=== PATIENT | female | born 1955 | race Caucasian/White ===

== ENCOUNTER 2021-11-05 11:04 | Outpatient (CLI) | payer MEDICARE, BC, SELFPAY | END 2021-11-05 11:05 | disposition home or self-care (01) | LOC: AMB 11-07 21:51 | PROVIDERS: Visit Provider Emergency Medicine | DX: R50.9 Fever, unspecified (principal) | CPT/HCPCS: A0425; A0427 ==

== ENCOUNTER 2021-11-05 11:52 | Emergency (ER) | payer MEDICARE, BC, SELFPAY ==
[2021-11-05 11:32] VITALS: BP 132/60; PULSE 113; RESP 18; TEMP 39; O2SAT 93; BMI 33.1
--- NOTE | 2021-11-05 11:32 | ED.GENADULT ---
HPI - General Adult General Time Seen by Provider: 11:31 <Maurizio Osorio MD - Last Filed: 11/05/21 15:02> Date Seen: 11/05/21 <Maurizio Osorio MD - Last Filed: 11/05/21 15:02> Chief complaint: Fever <Maurizio Osorio MD - Last Filed: 11/05/21 15:02> Stated complaint: fever <Maurizio Osorio MD - Last Filed: 11/05/21 15:02> Source: patient <Maurizio Osorio MD - Last Filed: 11/05/21 15:02> Mode of arrival: EMS <Maurizio Osorio MD - Last Filed: 11/05/21 15:02> History of Present Illness HPI narrative: 66-year-old female who presents today with fever and cough. She has had the fever since yesterday, cough is been going on for about a week. She has had chills and some body aches for the past week but has been afebrile prior to last night. No nausea or vomiting but decreased appetite. She has had headache. She has some sinus congestion but no runny nose, no sore throat. No abdominal pain, no diarrhea, no urinary symptoms. She has been taking Tylenol for her fever. Cough is nonproductive, does not seem to be worse lying down versus sitting. She denies shortness of breath and chest pain, did have some back pain yesterday. <Maurizio Osorio MD - Last Filed: 11/05/21 15:02> Related Data Home medications: Home Medications Medication Instructions Recorded Confirmed alendronate 70 mg tablet mg PO 11/05/21 bupropion HCl 150 mg 24 hr tablet, mg PO 11/05/21 extended release bupropion HCl 300 mg 24 hr tablet, mg PO 11/05/21 extended release omeprazole 20 mg capsule,delayed mg 11/05/21 release pramipexole 1 mg tablet mg 11/05/21 sertraline 100 mg tablet mg 11/05/21 topiramate 100 mg tablet mg 11/05/21 topiramate 50 mg tablet mg 11/05/21 Previous Rx's Medication Instructions Recorded levofloxacin 750 mg tablet 750 mg PO Q24H #7 tab 11/05/21 <Maurizio Osorio MD - Last Filed: 11/05/21 15:02> Allergies/adverse reactions: Allergies Allergy/AdvReac Type Severity Reaction Status Date / Time cefaclor [From [facility]] Allergy Hives Verified 11/05/21 11:40 <Maurizio Osorio MD - Last Filed: 11/05/21 15:02> Review of Systems Status of ROS: Reports: 10 or more systems reviewed and unremarkable except as noted in History and below <Maurizio Osorio MD - Last Filed: 11/05/21 15:02> [facility] Social History: Social History Smoking Status: Never smoker Do you use any of these nicotine containing products: None Second hand tobacco smoke exposure: No How often do you have a drink containing alcohol: monthly or less How often do you have six or more drinks on one occasion: Never AUDIT-C Alcohol total score: 1 Non-prescribed substance use: denies use <Maurizio Osorio MD - Last Filed: 11/05/21 15:02> Exam Const: Vital Signs, click to edit/add: Vital Signs - 24 hr 11/05/21 11:32 Temperature 102.2 F H Pulse Rate [Pulse Oximeter] 113 H Respiratory Rate 18 Blood Pressure [Le ft Upper Arm] 132/60 Pulse Oximetry 93 <Maurizio Osorio MD - Last Filed: 11/05/21 15:02> Documenting provider has reviewed patient's vital signs: yes <Maurizio Osorio MD - Last Filed: 11/05/21 15:02> Common normals: no apparent distress, oriented x3, no limitations, healthy appearing and alert <Maurizio Osorio MD - Last Filed: 11/05/21 15:02> HENMT: Common normals: normocephalic, head/scalp atraumatic, external ears normal, external nose normal and moist oral mucous membranes <Maurizio Osorio MD - Last Filed: 11/05/21 15:02> Head and scalp: normocephalic and atraumatic <Maurizio Osorio MD - Last Filed: 11/05/21 15:02> Nose: external nose normal <Maurizio Osorio MD - Last Filed: 11/05/21 15:02> External ear: external ears normal <Maurizio Osorio MD - Last Filed: 11/05/21 15:02> Eye: Common normals: PERRL, EOMs intact bilaterally and conjunctivae normal <Maurizio Osorio MD - Last Filed: 11/05/21 15:02> Conjunctiva: conjunctiva(e) normal <Maurizio Osorio MD - Last Filed: 11/05/21 15:02> Pupil: PERRL <Maurizio Osorio MD - Last Filed: 11/05/21 15:02> Neck & C-Spine: Common normals: full ROM, no lymphadenopathy and supple <MD Jen Light Last Filed: 11/05/21 15:02> General: trachea midline <Maurizio Osorio MD - Last Filed: 11/05/21 15:02> Lymph: Lymphatic: no lymphadenopathy noted <Maurizio Osorio MD - Last Filed: 11/05/21 15:02> Chest: Common normals: inspection of chest normal and palpation of chest normal <Maurizio Osorio MD - Last Filed: 11/05/21 15:02> Resp: Common normals: normal respiratory effort, no retractions and clear to auscultation bilaterally <Maurizio Osorio MD - Last Filed: 11/05/21 15:02> Auscultation: clear to auscultation bilaterally <Maurizio Osorio MD - Last Filed: 11/05/21 15:02> Cardio: Common normals: regular rhythm and no murmurs <MD Jen Light Last Filed: 11/05/21 15:02> Rate: tachycardic <MD Jen Light Last Filed: 11/05/21 15:02> Rhythm: regular rhythm <MD Jen Light Last Filed: 11/05/21 15:02> GI: Common normals: Normal to inspection, nondistended, normoactive bowel sounds present, soft to palpation and non-tender <MD Jen Light Last Filed: 11/05/21 15:02> Palpation: soft <Maurizio Osorio MD - Last Filed: 11/05/21 15:02> : Common normals: no CVA tenderness <Maurizio Osorio MD - Last Filed: 11/05/21 15:02> Bladder/kidney exam: no CVA tenderness <Maurizio Osorio MD - Last Filed: 11/05/21 15:02> Back & Pelvis: Common normals: no CVA tenderness and no thoracic nor lumbar tenderness <Maurizio Osorio MD - Last Filed: 11/05/21 15:02> Extremity: Common normals: normal to inspection and full ROM <Maurizio Osorio MD - Last Filed: 11/05/21 15:02> Neuro: Common normals: oriented x3, CN's II-XII intact bilaterally and no focal motor deficits <Maurizio Osorio MD - Last Filed: 11/05/21 15:02> Sensorium/orientation: alert <Maurizio Osorio MD - Last Filed: 11/05/21 15:02> Psych: Common normals: mental status grossly normal <Maurizio Osorio MD - Last Filed: 11/05/21 15:02> Skin: Common normals: no rashes or lesions noted <Maurizio Osorio MD - Last Filed: 11/05/21 15:02> General skin exam: no rashes or lesions noted <Maurizio Osorio MD - Last Filed: 11/05/21 15:02> Course Course Hospital Course: Patient seen examined, prior records reviewed. Differential diagnosis includes but not limited to COVID, influenza, pneumonia, acute cholecystitis, urinary tract infection, sepsis. Patient presents cough, body aches the last week and now with a fever. On exam here, patient is febrile and tachycardic. IV fluids and Tylenol ordered for this. Labs, chest x-ray, COVID/influenza swab, and right upper quadrant ultrasound are ordered although patient really has no right upper quadrant pain or tenderness today, she did have some yesterday. Urinalysis is pending. Will defer antibiotics at this point given COVID pandemic and local influenza prevelence. <Maurizio Osorio MD - Last Filed: 11/05/21 15:02> Reevaluation(s) Reevaluation #1: Chest x-ray negative, labs so far reassuring including negative influenza, negative COVID. CT scan was ordered due to negative x-ray and concern for pneumonia. Chest CT personally reviewed and interpreted by me demonstrates a dense right lower lobe infiltrate consistent with pneumonia which is is the source of patient's symptoms today. Patient will be started on Levaquin. <Maurizio Osorio MD - Last Filed: 11/05/21 15:02> Time: 14:15 <Maurizio Osorio MD - Last Filed: 11/05/21 15:02> Reevaluation #2: Right upper quadrant ultrasound is negative for any acute findings. Patient is stable for discharge. <Maurizio Osorio MD - Last Filed: 11/05/21 15:02> Time: 15:01 <Maurizio Osorio MD - Last Filed: 11/05/21 15:02> Vital Signs Vital signs: Initial Vital Signs Temperature 102.2 F H 11/05/21 11:32 Temperature Source Temporal Artery Scan 11/05/21 11:32 Pulse Rate 113 H 11/05/21 11:32 Respiratory Rate 18 11/05/21 11:32 Blood Pressure 132/60 11/05/21 11:32 Blood Pressure Mean 84 11/05/21 11:32 Blood Pressure Position Supine 11/05/21 11:32 Pulse Oximetry 93 11/05/21 11:32 Oxygen Delivery Method 11/05/21 11:32 Vital Signs Temperature 102.2 F H 11/05/21 11:32 Pulse Rate 113 H 11/05/21 11:32 Respiratory Rate 18 11/05/21 11:32 Blood Pressure 132/60 11/05/21 11:32 Pulse Oximetry 93 11/05/21 11:32 Temperature 102.2 F H 11/05/21 11:32 Pulse Rate 113 H 11/05/21 11:32 Respiratory Rate 18 11/05/21 11:32 Blood Pressure 132/60 11/05/21 11:32 Pulse Oximetry 93 11/05/21 11:32 <Maurizio Osorio MD - Last Filed: 11/05/21 15:02> Medical Decision Making Medical Records Medical records reviewed: Yes I reviewed the patient's medical records <Maurizio Osorio MD - Last Filed: 11/05/21 15:02> Lab Data Lab results reviewed: Yes I reviewed the patient's lab results <Maurizio Osorio MD - Last Filed: 11/05/21 15:02> Labs: Lab Results 11/05/21 11/05/21 11/05/21 Range/Units 11:43 12:00 12:20 WBC 9.64 (4.50-11.00) K/uL RBC 4.20 (4.00-5.20) m/uL Hgb 12.7 (12.0-16.0) gm/dL Hct 38.7 (33.0-51.0) % MCV 92 (80-100) fL MCH 30 (26-34) pg MCHC 33 (32-36) gm/dL RDW Coeff of Sammy 12.8 (11.5-15.5) % Plt Count 226 (140-440) K/uL Neut % (Auto) 84.7 H (42.0-72.0) % Lymph % (Auto) 6.8 L (20-44) % [place] % (Auto) 7.2 (0.0-11.0) % Eos % (Auto) 0.3 (0.0-7.0) % Baso % (Auto) 0.2 (0.0-3.0) % Neut # (Auto) 8.20 H (1.7-7.0) K/uL Lymph # (Auto) 0.70 L (0.90-2.90) K/uL [place] # (Auto) 0.70 (0.00-0.90) K/UL Eos # (Auto) 0.03 (0.00-0.50) K/uL Baso # (Auto) 0.02 (0.00-0.30) K/uL Abs Immat Gran (auto) 0.08 (0.00-0.30) K/uL Sodium (135-149) mmol/L Potassium (3.6-5.1) mmol/L Chloride (96-114) mmol/L Carbon Dioxide (20-32) mmol/L BUN (7-30) mg/dL Creatinine (0.5-1.5) mg/dL Estimated Creat Clear Glucose (60-115) mg/dL Lactate (0.5-1.9) mmol/L Calcium (8.4-10.6) mg/dL Total Bilirubin (0.1-1.5) mg/dL Direct Bilirubin (0.0-0.5) mg/dL AST (12-35) U/L ALT (4-35) U/L Alkaline Phosphatase (40-150) U/L Total Protein (6.0-8.3) g/dL Albumin (3.3-5.0) g/dL Lipase (23-300) U/L Urine Color Yellow (Yellow) Urine Appearance Clear (Clear) Urine pH 8.5 (5.0-8.5) Ur Specific [place] 1.015 (1.000-1.030) Urine Protein 1+ A (Negative) Urine Glucose (UA) Negative (Negative) Urine Ketones Negative (Negative) Urine Blood Trace-Intact A (Negative) Urine Nitrite Negative (Negative) Urine Bilirubin Negative (Negative) Urine Urobilinogen 8.0 A (0.2-1.0) Ur Leukocyte Esterase Negative (Negative) Urine RBC 2-5 A (0-2) Urine WBC 0-2 (0-5) Ur Squamous Epith Cells Few (None-Few) Amorphous Sediment (None) Urine Bacteria None (None) Urine Mucus (None) SARS-CoV-2 (PCR) Negative SARS-CoV-2 (Negative) Influenza Type A (PCR) Negative PCR FLU A (Negative) Influenza Type B (PCR) Negative PCR FLU B (Negative) 11/05/21 11/05/21 Range/Units 12:20 12:20 WBC (4.50-11.00) K/uL RBC (4.00-5.20) m/uL Hgb (12.0-16.0) gm/dL Hct (33.0-51.0) % MCV (80-100) fL MCH (26-34) pg MCHC (32-36) gm/dL RDW Coeff of Sammy (11.5-15.5) % Plt Count (140-440) K/uL Neut % (Auto) (42.0-72.0) % Lymph % (Auto) (20-44) % [place] % (Auto) (0.0-11.0) % Eos % (Auto) (0.0-7.0) % Baso % (Auto) (0.0-3.0) % Neut # (Auto) (1.7-7.0) K/uL Lymph # (Auto) (0.90-2.90) K/uL [place] # (Auto) (0.00-0.90) K/UL Eos # (Auto) (0.00-0.50) K/uL Baso # (Auto) (0.00-0.30) K/uL Abs Immat Gran (auto) (0.00-0.30) K/uL Sodium 138 (135-149) mmol/L Potassium 3.4 L (3.6-5.1) mmol/L Chloride 107 (96-114) mmol/L Carbon Dioxide 23 (20-32) mmol/L BUN 11 (7-30) mg/dL Creatinine 1.0 (0.5-1.5) mg/dL Estimated Creat Clear 41.19 Glucose 108 (60-115) mg/dL Lactate 0.8 (0.5-1.9) mmol/L Calcium 8.2 L (8.4-10.6) mg/dL Total Bilirubin 0.7 (0.1-1.5) mg/dL Direct Bilirubin 0.5 (0.0-0.5) mg/dL AST 31 (12-35) U/L ALT 24 (4-35) U/L Alkaline Phosphatase 68 (40-150) U/L Total Protein 7.1 (6.0-8.3) g/dL Albumin 3.9 (3.3-5.0) g/dL Lipase 31 (23-300) U/L Urine Color (Yellow) Urine Appearance (Clear) Urine pH (5.0-8.5) Ur Specific [place] (1.000-1.030) Urine Protein (Negative) Urine Glucose (UA) (Negative) Urine Ketones (Negative) Urine Blood (Negative) Urine Nitrite (Negative) Urine Bilirubin (Negative) Urine Urobilinogen (0.2-1.0) Ur Leukocyte Esterase (Negative) Urine RBC (0-2) Urine WBC (0-5) Ur Squamous Epith Cells (None-Few) Amorphous Sediment (None) Urine Bacteria (None) Urine Mucus (None) SARS-CoV-2 (PCR) (Negative) Influenza Type A (PCR) (Negative) Influenza Type B (PCR) (Negative) <Maurizio Osorio MD - Last Filed: 11/05/21 15:02> Discharge Plan Discharge Clinical Impression: Community acquired pneumonia <Maurizio Osorio MD - Last Filed: 11/05/21 15:02> Patient Disposition: Home, Self-Care <Maurizio Osorio MD - Last Filed: 11/05/21 15:02> Condition: Stable <Maurizio Osorio MD - Last Filed: 11/05/21 15:02> Instructions: Community Acquired Pneumonia (ED) <Maurizio Osorio MD - Last Filed: 11/05/21 15:02> Activity Level: No Restrictions <Maurizio Osorio MD - Last Filed: 11/05/21 15:02> Discharge Diet: Regular <Maurizio Osorio MD - Last Filed: 11/05/21 15:02> Prescriptions: New levofloxacin 750 mg tablet 750 mg PO Q24H Qty: 7 0RF Rx Instructions: Start 11/06/2021 No Action pramipexole 1 mg tablet 0RF alendronate 70 mg tablet PO 0RF sertraline 100 mg tablet 0RF omeprazole 20 mg capsule,delayed release(DR/EC) 0RF topiramate 100 mg tablet 0RF bupropion HCl 300 mg tablet extended release 24 hr PO 0RF bupropion HCl 150 mg tablet extended release 24 hr PO 0RF topiramate 50 mg tablet 0RF <Maurizio Osorio MD - Last Filed: 11/05/21 15:02> Stand Alone Forms: MyHealth Info Instructions <Maurizio Osorio MD - Last Filed: 11/05/21 15:02>
--- NOTE | 2021-11-05 11:54 | XR_ITS ---
Final Report Patient: JAYA ZIEGLER Facility:?[facility] Patient ID:?[id number] Site Patient ID:?[id number]. Site :?[id number] Study:?XRay Chest PORTABLE 1 VIEW-11/05/2021 1:05:26 PM Ordering Physician:?KALIA ARGUETA MD Final Report: INDICATION: Cough, fever. TECHNIQUE: Chest 1 views. COMPARISON: None. FINDINGS: Cardiovascular and mediastinum: Heart size and vasculature are normal in caliber and appearance. Lungs and pleural spaces: Lungs are clear. No sign of infiltrate or mass. No sign of pleural effusion. No pneumothorax. Bones and soft tissues: No significant findings. IMPRESSION: No acute or significant findings. Dictated by Remington Mike MD @ 11/05/2021 1:20:21 PM (Electronic Signature)
--- NOTE | 2021-11-05 11:54 | US_ITS ---
Final Report Patient: JAYA ZIEGLER Facility:?[facility] Patient ID:?[id number] Site Patient ID:?[id number]. Site :?[id number] Study:?US Abdomen/Pelvis -11/05/2021 1:56:58 PM Ordering Physician:Hilario Steven Final Report: INDICATION: Fever and abdomen pain. TECHNIQUE: Ultrasound abdomen limited. Sonographic images of the right upper quadrant were obtained using ramírez-scale and color Doppler images. COMPARISON: None. FINDINGS: Liver: Normal in size. Parenchyma is hypoechoic uniformly. No suspicious masses. No intrahepatic biliary dilatation. Gallbladder: No stones or sludge. Normal wall thickness. No pericholecystic fluid. Common bile duct: 7 mm. Pancreas: Unremarkable. Right kidney: Normal in size. Normal echotexture and cortex. No suspicious masses, stones, or hydronephrosis. Vasculature: Proximal abdominal aorta and IVC are unremarkable. IMPRESSION: Hypoechoic liver parenchyma is a nonspecific finding that can be seen with edema/hepatitis. Remainder of the exam is unremarkable. Dictated by Pepe Leahy MD @ 11/05/2021 2:50:49 PM (Electronic Signature)
[2021-11-05] MEDS: 0.9 % SODIUM CHLORIDE 1000 ml 1,000 ML IV (12:21)
[2021-11-05 12:35] LABS: Slide Review Reflex No
[2021-11-05 12:37] LABS: Lactate* 0.8 mmol/L (0.5-1.9)
--- NOTE | 2021-11-05 12:43 | ED.NURSE ---
pt took own tylenol per dr. hassan for elevated temp
[2021-11-05 12:47] LABS: Basophils Absolute Auto 0.02 K/uL (0.00-0.30); Basophils Percent Auto 0.2 % (0.0-3.0); Eosinophils Absolute Auto 0.03 K/uL (0.00-0.50); Eosinophils Percent Auto 0.3 % (0.0-7.0); Hematocrit 38.7 % (33.0-51.0); Hemoglobin* 12.7 gm/dL (12.0-16.0); Immature Granulocytes Abs Auto 0.08 K/uL (0.00-0.30); Lymphocytes Percent Auto 6.8 % (20-44); Mean Corpuscular HGB Conc 33 gm/dL (32-36); Mean Corpuscular Hemoglobin 30 pg (26-34); Mean Corpuscular Volume 92 fL (80-100); Monocytes Percent Auto 7.2 % (0.0-11.0); Neutrophils Percent Auto 84.7 % (42.0-72.0); Platelet Count* 226 K/uL (140-440); RDW Coefficient of Variation % 12.8 % (11.5-15.5); White Blood Count* 9.64 K/uL (4.50-11.00)
[2021-11-05 12:56] LABS: Albumin* 3.9 g/dL (3.3-5.0); Chloride* 107 mmol/L (96-114); Sodium* 138 mmol/L (135-149)
[2021-11-05 12:57] LABS: Potassium* 3.4 mmol/L (3.6-5.1)
[2021-11-05 12:58] LABS: Est. Creatinine Clearance* 41.19; Estimated Glomerular Filt Rate 61.75
[2021-11-05 12:59] LABS: Alkaline Phosphatase* 68 U/L (40-150); Aspartate Amino Transferase* 31 U/L (12-35); Bilirubin Direct* 0.5 mg/dL (0.0-0.5); Bilirubin Total* 0.7 mg/dL (0.1-1.5); Blood Urea Nitrogen* 11 mg/dL (7-30); Carbon Dioxide* 23 mmol/L (20-32); Glucose* 108 mg/dL (60-115); Total Protein* 7.1 g/dL (6.0-8.3)
[2021-11-05 13:00] LABS: Alanine Aminotransferase* 24 U/L (4-35); Calcium* 8.2 mg/dL (8.4-10.6); Lipase* 31 U/L (23-300)
[2021-11-05 13:30] LABS: PCR FLU A Negative PCR FLU A (Negative); PCR FLU B Negative PCR FLU B (Negative); SARS PCR* Negative SARS-CoV-2 (Negative)
--- NOTE | 2021-11-05 13:35 | CT_ITS ---
Final Report Patient: JAYA ZIEGLER Facility:?[facility] Patient ID:?[id number] Site Patient ID:?[id number]. Site :?[id number] Study:?CT Chest W/O-11/05/2021 1:55:14 PM Ordering Physician:Hilario Steven Final Report: Indication: The fever. Cough. Technique: Multiple contiguous axial images were obtained from the thoracic inlet through the upper abdomen without intravenous contrast enhancement. Please note that all CT scans at this facility use dose modulation, iterative reconstruction, and/or weight-based dosing when appropriate to reduce radiation dose to as low as reasonably achievable. Comparison: None Findings: The heart is normal in size. No pericardial effusion is identified. A trace hiatal hernia is identified. No mediastinal or axillary lymphadenopathy is identified. The unenhanced liver, spleen, pancreas, adrenals, and kidneys are normal. No intrahepatic biliary ductal dilatation is identified. No hydronephrosis is identified. A right lower lobe infiltrate is identified. No pleural effusion or pneumothorax is identified. Impression: Right lower lobe infiltrate Please note that all CT scans at this facility use dose modulation, iterative reconstruction, and/or weight-based dosing when appropriate to reduce radiation dose to as low as reasonably achievable. Dictated by Janelle Bhakta MD @ 11/05/2021 2:50:34 PM (Electronic Signature)
[2021-11-05 13:41] LABS: Appearance Urine Clear (Clear); Bilirubin Urine Negative (Negative); Color Urine Yellow (Yellow); Glucose Urine Negative (Negative); Ketones Urine Negative (Negative); Leukocyte Esterase Urine Negative (Negative); Nitrite Urine Negative (Negative); Protein Urine 1+ (Negative); Specific Gravity Urine 1.015 (1.000-1.030); pH Urine 8.5 (5.0-8.5)
[2021-11-05 14:07] LABS: Blood Urine Trace-Intact (Negative)
[2021-11-05 14:08] LABS: Squamous Epithelial Cell Urine Few (None-Few); WBC Urine 0-2 (0-5)
--- NOTE | 2021-11-05 14:36 | ED.NURSE ---
Pt ambulatory to BR w/ steady gait. IVF complete.
[2021-11-05 15:12] VITALS: BP 130/77; PULSE 98; RESP 22; O2SAT 94
[2021-11-05] MEDS: levoFLOXacin 750 MG TABLET PO (15:14)
== END 2021-11-05 15:19 | disposition home or self-care (01) ==
PROVIDERS: Emergency Provider Family Medicine
DX: J18.9 Pneumonia, unspecified organism (principal)
CPT/HCPCS: 96360; 36415; 71045; 71250; 76705; 80048; 80076; 81001; 83605; 83690; 85025; 87502; 87635; 99284; 99285; A9270; J7030

== ENCOUNTER 2022-03-28 17:15 | Emergency (ER) | payer OTHER, SELFPAY ==
[2022-03-28 17:19] VITALS: BP 158/76; PULSE 81; RESP 18; TEMP 36.9; O2SAT 96; BMI 29.2
--- NOTE | 2022-03-28 17:30 | ED.FEMALEGU ---
HPI - Female Genitourinary General Time Seen by Provider: 17:30 Date Seen: 03/28/22 Chief complaint: Urogenital Problems, Female Stated complaint: Urinalogy Time Seen by Provider: 03/28/22 17:24 Source: patient, RN notes reviewed and old records reviewed Mode of arrival: ambulatory Limitations: no limitations History of Present Illness HPI Narrative: Yadira is a very pleasant 67-year-old female previously healthy who comes to the emergency room for evaluation regarding dysuria. And notes the onset of pressure when she would urinate and the urgency of a UTI on Thursday or ThursdayMarch 24 or . She had been sexually active on the for the 1st time in many many years. She does assure me that she they did use lubrication but states that it was painful. He has not had any vaginal bleeding. She has had no fever or chills abdominal pain or back pain. She has had 1 previous UTI and feels that this is similar to that. Patient denies possibility of STI but understands why we may need to check for it. Related Data Home Medications Medication Instructions Recorded Confirmed alendronate 70 mg tablet mg PO 11/05/21 bupropion HCl 150 mg 24 hr tablet, mg PO 11/05/21 extended release bupropion HCl 300 mg 24 hr tablet, mg PO 11/05/21 extended release omeprazole 20 mg capsule,delayed mg 11/05/21 release pramipexole 1 mg tablet mg 11/05/21 sertraline 100 mg tablet mg 11/05/21 topiramate 100 mg tablet mg 11/05/21 topiramate 50 mg tablet mg 11/05/21 Previous Rx's Medication Instructions Recorded levofloxacin 750 mg tablet 750 mg PO Q24H #7 tabs 11/05/21 Allergies Allergy/AdvReac Type Severity Reaction Status Date / Time cefaclor [From [facility]] Allergy Hives Verified 11/05/21 11:40 Review of Systems Const: Denies: fever or chills GI: Denies: abdominal pain, nausea or vomiting : Denies: urinary frequency, urinary urgency, urinary incontinence or blood in urine Musculo: Denies: back pain PFSH PFSH Social History Smoking Status: Never smoker Do you use any of these nicotine containing products: None Second hand tobacco smoke exposure: No How often do you have a drink containing alcohol: monthly or less How often do you have six or more drinks on one occasion: Never AUDIT-C Alcohol total score: 1 Non-prescribed substance use: denies use Exam Narrative: Exam Narrative: Patient is alert and oriented. No acute distress. Heart with regular rate and rhythm and lungs are clear to auscultation. Abdomen is soft nontender. Examination of the female genitalia notes normal external labia majora and labia minora. There is a tiny area approximately 2 mm with superficial laceration compromising external mucosa only on the mucosa a chest a lateral on the left of the clitoris. There is obvious mild edema surrounding the urinary meatus. On the inferior surface there seems to be a boggy edema measuring 1 mm x 3 mm. Speculum is gently inserted. Vaginal renee appear to be intact. vaginal canal on patient's right noted to be a small area measuring approximately 6 mm of superficial petechiae. Overlying this area is a white adherent exudate. Cervix is poorly visualized but noted. No cervical motion tenderness. GC chlamydia accomplished. Wet prep accomplished. Const: Vital Signs, click to edit/add: Vital Signs - 24 hr 03/28/22 17:19 03/28/22 19:19 Temperature 98.5 F 97.9 F Pulse Rate [Right Pulse Oximeter] 81 79 Respiratory Rate 18 18 Blood Pressure [Ri ght Upper Arm] 158/76 H 135/74 Pulse Oximetry 96 97 Oxygen Delivery Me thod Room Air Room Air Documenting provider has reviewed patient's vital signs: yes Course Course Hospital Course: Patient is informed that her urinalysis is not show any evidence of UTI. I would like to proceed with regional sales consultant examination and patient is in agreement with this. Vital Signs Vital signs: Initial Vital Signs Temperature 98.5 F 03/28/22 17:19 Temperature Source Temporal Artery Scan 03/28/22 17:19 Pulse Rate 81 03/28/22 17:19 Respiratory Rate 18 03/28/22 17:19 Blood Pressure 158/76 H 03/28/22 17:19 Blood Pressure Mean 103 03/28/22 17:19 Blood Pressure Position Sitting 03/28/22 17:19 Pulse Oximetry 96 03/28/22 17:19 Oxygen Delivery Method 03/28/22 17:19 Vital Signs Temperature 98.5 F 03/28/22 17:19 Pulse Rate 81 11/18/22 17:19 Respiratory Rate 18 03/28/22 17:19 Blood Pressure 158/76 H 03/28/22 17:19 Pulse Oximetry 96 03/28/22 17:19 Oxygen Delivery Method 03/28/22 17:19 Temperature 97.9 F 03/28/22 19:19 Pulse Rate 79 03/28/22 19:19 Respiratory Rate 18 03/28/22 19:19 Blood Pressure 135/74 03/28/22 19:19 Pulse Oximetry 97 03/28/22 19:19 Oxygen Delivery Method 03/28/22 19:19 MDM - Female Genitourinary MDM Narrative Medical decision making narrative: 1. General trauma- patient has multiple minor sequela of recent sexual activity. This should heal without difficulty. however, there is a abnormal area deep within the vaginal wall that I would like to ensure complete resolution of. I would like patient to follow-up with OBGYN in the next week for a recheck. Strongly encourage use of lubrication when participating in sexual activity. 3. Disposition- Home at this time. GC chlamydia pending although I have very low suspicion that this is an issue today. Ibuprofen or Tylenol as needed for pain. Medical Records Attestation: I reviewed the patient's medical records. Lab Data Attestation: I reviewed the patient's lab results. Labs: Lab Results 03/28/22 03/28/22 Range/Units 18:07 19:01 Urine Color Yellow (Yellow) Urine Appearance Clear (Clear) Urine pH 7.5 (5.0-8.5) Ur Specific [place] 1.020 (1.000-1.030) Urine Protein Negative (Negative) Urine Glucose (UA) Negative (Negative) Urine Ketones Negative (Negative) Urine Blood Negative (Negative) Urine Nitrite Negative (Negative) Urine Bilirubin Negative (Negative) Urine Urobilinogen 0.2 (0.2-1.0) Ur Leukocyte Esterase Negative (Negative) Vaginal Trichomonas No Trichomonas Seen (None Seen) Vaginal Yeast No Yeast Seen (None Seen) Vaginal Clue Cells No Clue Cells Seen (None Seen) Discharge Plan Discharge Clinical Impression: Genital trauma Patient Disposition: Home, Self-Care Condition: Unchanged Additional Instructions: at this time there is no evidence of yeast infection, bacterial vaginosis or urinary tract infection. You should have improvement of your symptoms over the next few days as swelling around the urethra opening decreases. Please follow-up for worsening symptoms. I would like you to see OBGYN for recheck to ensure healing of all the issues we spoke about. Please call [phone] and ask for the [facility] appointment desk Prescriptions: No Action pramipexole 1 mg tablet alendronate 70 mg tablet PO sertraline 100 mg tablet omeprazole 20 mg capsule,delayed release(DR/EC) topiramate 100 mg tablet bupropion HCl 300 mg tablet extended release 24 hr PO bupropion HCl 150 mg tablet extended release 24 hr PO topiramate 50 mg tablet levofloxacin 750 mg tablet 750 mg PO Q24H Qty: 7 0RF Rx Instructions: Start 11/06/2021 Follow Up/Referrals: Provider,Not a Local [Referring] - Stand Alone Forms: MyHealth Info Instructions
[2022-03-28 18:42] LABS: Appearance Urine Clear (Clear); Bilirubin Urine Negative (Negative); Blood Urine Negative (Negative); Color Urine Yellow (Yellow); Glucose Urine Negative (Negative); Ketones Urine Negative (Negative); Leukocyte Esterase Urine Negative (Negative); Nitrite Urine Negative (Negative); Protein Urine Negative (Negative); Urobilinogen Urine 0.2 (0.2-1.0); pH Urine 7.5 (5.0-8.5)
[2022-03-28 19:19] VITALS: BP 135/74; PULSE 79; RESP 18; TEMP 36.6; O2SAT 97
--- NOTE | 2022-03-28 19:19 | ED.NURSE ---
MD in room to perform pelvic exam with display card writer at bedside. Wet prep and GC/C swabs obtained.
[2022-03-28 19:29] LABS: Clue Cells No Clue Cells Seen (None Seen); Trichomonas No Trichomonas Seen (None Seen); Yeast No Yeast Seen (None Seen)
[2022-03-28 20:03] VITALS: BP 135/74; PULSE 79; RESP 18; TEMP 36.6
[2022-03-28 20:52] LABS: Chlamydia DNA Amplified* NOT DETECTED (No Detected); GC DNA Amplified* NOT DETECTED (No Detected)
== END 2022-03-28 20:04 | disposition home or self-care (01) ==
PROVIDERS: Emergency Provider Family Medicine; PCP Physician Assistant Medical
DX: S30.95XA Unspecified superficial injury of vagina and vulva, initial encounter (principal)
CPT/HCPCS: 81003; 87210; 87491; 87591; 99283; 99284

== ENCOUNTER 2022-08-26 15:42 | Emergency (ER) | payer OTHER, SELFPAY ==
[2022-08-26 15:48] VITALS: BP 149/71; PULSE 94; RESP 16; TEMP 36; O2SAT 95; BMI 31.5
--- NOTE | 2022-08-26 16:14 | ED_ITS ---
HPI - General Adult General Date Seen: 08/26/22 Chief complaint: Unspecified Complaint, Adult Stated complaint: restless legs Time Seen by Provider: 08/26/22 16:00 Source: patient Mode of arrival: ambulatory Limitations: no limitations History of Present Illness HPI narrative: Patient is a 67-year-old woman who says she has a longstanding history of restless legs syndrome. She has been on Mirapex for several years, overall she does not think that it is that helpful but for the past couple of days she says her symptoms are much worse than at baseline and she is unable to sleep. 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 She does not feel comfortable going to work tonight because she has not been able to sleep the past couple of days and she is very tired. She has used all of her normal strategies at home and nothing is helping. No other complaints, no acute illness. Related Data Home Medications Medication Instructions Recorded Confirmed alendronate 70 mg tablet 70 mg PO QWEEK 11/05/21 03/29/22 bupropion HCl 150 mg 24 hr tablet, 150 mg PO DAILY 11/05/21 03/29/22 extended release bupropion HCl 300 mg 24 hr tablet, 300 mg PO DAILY 11/05/21 03/29/22 extended release omeprazole 20 mg capsule,delayed 20 mg PO DAILY 11/05/21 03/29/22 release pramipexole 1 mg tablet 1 mg PO DAILY 11/05/21 03/29/22 sertraline 100 mg tablet 200 mg PO DAILY 11/05/21 03/29/22 topiramate 100 mg tablet 100 mg PO DAILY 11/05/21 03/29/22 topiramate 50 mg tablet 50 mg PO DAILY 11/05/21 03/29/22 albuterol sulfate 90 mcg/actuation 2 puff inhalation Q4H PRN 03/29/22 03/29/22 aerosol inhaler cyanocobalamin (vitamin B-12) 1,000 mcg PO DAILY 03/29/22 03/29/22 1,000 mcg capsule phentermine 37.5 mg tablet 37.5 mg PO DAILY 03/29/22 03/29/22 Allergies Allergy/AdvReac Type Severity Reaction Status Date / Time cefaclor [From [facility]] Allergy Hives Verified 11/05/21 11:40 Review of Systems Status of ROS: Reports: 6 or more systems reviewed and unremarkable except as noted in History and below [facility] Medical History Allergic conjunctivitis of both eyes ?H10.13 - Acute atopic conjunctivitis, bilateral (ICD-10) Chronic GERD ?K21.9 - Gastro-esophageal reflux disease without esophagitis (ICD-10) Depression with anxiety ?F41.8 - Other specified anxiety disorders (ICD-10) Frequent headaches ?R51.9 - Headache, unspecified (ICD-10) Gambling problem ?Z72.6 - Gambling and betting (ICD-10) Hyperopia of left eye ?H52.02 - Hypermetropia, left eye (ICD-10) Hyperopic astigmatism of right eye ?H52.201 - Unspecified astigmatism, right eye (ICD-10) Memory problem ?R41.3 - Other amnesia (ICD-10) Mood disorder ?F39 - Unspecified mood [affective] disorder (ICD-10) Nuclear senile cataract of both eyes ?H25.13 - Age-related nuclear cataract, bilateral (ICD-10) Osteoporosis ?M81.0 - Age-related osteoporosis without current pathological fracture (ICD- 10) Presbyopia ?H52.4 - Presbyopia (ICD-10) Restless leg ?G25.81 - Restless legs syndrome (ICD-10) Sleep difficulties ?G47.9 - Sleep disorder, unspecified (ICD-10) Surgical History No significant past surgical history Social History Smoking Status: Never smoker Do you use any of these nicotine containing products: None Second hand tobacco smoke exposure: No How often do you have a drink containing alcohol: monthly or less How often do you have six or more drinks on one occasion: Never AUDIT-C Alcohol total score: 1 Non-prescribed substance use: denies use Exam Narrative: Exam Narrative: Vital signs reviewed In general, an alert, nontoxic woman. Extremities: Her legs were moving throughout our conversation. There is no edema, erythema, tenderness. Pulses intact. Skin: Warm and dry. No rash or lesion. Neurologic: She is alert, face symmetric, speech fluent, was all extremities equally. Affect: Normal. Const: Vital Signs, click to edit/add: Vital Signs - 24 hr 08/26/22 15:48 Temperature 96.8 F L Pulse Rate [Pulse Oximeter] 94 Respiratory Rate 16 Blood Pressure [Ri ght Upper Arm] 149/71 H Pulse Oximetry 95 Oxygen Delivery Me thod Room Air Course Course Hospital Course: Discussed her symptoms, she requests a note for work tonight which was provided. I will give her a few Ativan to try, discussed with her that these are not a long-term solution at their min to be used only intermittently and short term for flare ups. If she does not feel that she is returning to baseline over the next couple of days I would ask her to follow up with her primary care doctor discuss better long-term strategies. Vital Signs Vital signs: Initial Vital Signs Temperature 96.8 F L 08/26/22 15:48 Temperature Source Temporal Artery Scan 08/26/22 15:48 Pulse Rate 94 08/26/22 15:48 Respiratory Rate 16 08/26/22 15:48 Blood Pressure 149/71 H 08/26/22 15:48 Blood Pressure Mean 97 08/26/22 15:48 Blood Pressure Position Sitting 08/26/22 15:48 Pulse Oximetry 95 08/26/22 15:48 Oxygen Delivery Method Room Air 08/26/22 15:48 Vital Signs Temperature 96.8 F L 08/26/22 15:48 Pulse Rate 94 08/26/22 15:48 Respiratory Rate 16 08/26/22 15:48 Blood Pressure 149/71 H 08/26/22 15:48 Pulse Oximetry 95 08/26/22 15:48 Oxygen Delivery Method Room Air 08/26/22 15:48 Temperature 96.8 F L 08/26/22 15:48 Pulse Rate 94 08/26/22 15:48 Respiratory Rate 16 08/26/22 15:48 Blood Pressure 149/71 H 08/26/22 15:48 Pulse Oximetry 95 08/26/22 15:48 Oxygen Delivery Method Room Air 08/26/22 15:48 Discharge Plan Discharge Clinical Impression: Restless leg syndrome Patient Disposition: Home, Self-Care Condition: Stable Instructions: Restless Legs Syndrome (ED) Additional Instructions: Continue current management and medication. Okay to try Ativan as prescribed at bedtime. This is a short-term and intermittent solution, if things do not settle back down, recommend talking with her primary doctor about other strategies. Prescriptions: No Action pramipexole 1 mg tablet 1 mg PO DAILY alendronate 70 mg tablet 70 mg PO QWEEK sertraline 100 mg tablet 200 mg PO DAILY omeprazole 20 mg capsule,delayed release(DR/EC) 20 mg PO DAILY topiramate 100 mg tablet 100 mg PO DAILY bupropion HCl 300 mg tablet extended release 24 hr 300 mg PO DAILY bupropion HCl 150 mg tablet extended release 24 hr 150 mg PO DAILY topiramate 50 mg tablet 50 mg PO DAILY phentermine 37.5 mg tablet 37.5 mg PO DAILY Patient Comments: TAKE 1 TABLET BY MOUTH ONCE DAILY BEFORE A MEAL albuterol sulfate 90 mcg/actuation HFA aerosol inhaler 2 puff INHALATION Q4H PRN Patient Comments: INHALE 1 TO 2 PUFFS BY MOUTH EVERY 4 HOURS NEEDED FOR WHEEZING cyanocobalamin (vitamin B-12) 1,000 mcg capsule 1,000 mcg PO DAILY Follow Up/Referrals: Nicola Palmer PA-C [Primary Care Provider] - Stand Alone Forms: [facility] Info Instructions
[2022-08-26 16:32] VITALS: BP 149/71; PULSE 94; RESP 16; TEMP 36
== END 2022-08-26 16:33 | disposition home or self-care (01) ==
LOC: ED 16:22
PROVIDERS: Emergency Provider Emergency Medicine; PCP Physician Assistant Medical
DX: G25.81 Restless legs syndrome (principal)
CPT/HCPCS: 99283; 99284

== ENCOUNTER 2023-01-03 12:19 | Emergency (ER) | payer OTHER, SELFPAY ==
[2023-01-03 12:29] VITALS: BP 125/80; PULSE 94; RESP 16; TEMP 37.1; O2SAT 92; BMI 31.6
--- NOTE | 2023-01-03 12:40 | ED_ITS ---
HPI - General Adult General Chief complaint: Extremity Pain/Injury, Upper Stated complaint: fell off ladder, 3 feet up Time Seen by Provider: 01/03/23 12:34 History of Present Illness HPI narrative: This is a pleasant 67 female who presents to the ER today for injury to her left forearm and wrist. She was on a ladder today about 3 rungs up when the ladder fell sideways. She fell the other direction off the ladder. When falling off ladder she apparently got her arm scraped or twist along the wrong as she fell. She did really graft letter or have a pulling injury to her arm. She was of the land on the ground. She did injure other parts of her body. She did hit her head. No injury to her neck. No injury to her back or torso. Hips and lower extremities are uninjured. Right upper extremity is uninjured. She initially noted some superficial scrapes on the volar surface of her left forearm. Shortly after the accident she noted development of bruising and swelling on the volar forearm and volar wrist. She has a little bit of pain when she flexes the wrist but otherwise is able to pronate/supinate her forearm normally and flex and extend her wrist normally. No associated numbness. She does not take any anticoagulants. No elbow pain, humerus pain, or shoulder pain. Related Data Home Medications Medication Instructions Recorded Confirmed alendronate 70 mg tablet 70 mg PO QWEEK 11/05/21 03/29/22 bupropion HCl 150 mg 24 hr tablet, 150 mg PO DAILY 11/05/21 01/03/23 extended release bupropion HCl 300 mg 24 hr tablet, 300 mg PO DAILY 11/05/21 01/03/23 extended release omeprazole 20 mg capsule,delayed 20 mg PO DAILY 11/05/21 01/03/23 release pramipexole 1 mg tablet 1 mg PO DAILY 11/05/21 03/29/22 sertraline 100 mg tablet 200 mg PO DAILY 11/05/21 01/03/23 topiramate 100 mg tablet 100 mg PO DAILY 11/05/21 03/29/22 topiramate 50 mg tablet 50 mg PO DAILY 11/05/21 03/29/22 albuterol sulfate 90 mcg/actuation 2 puff inhalation Q4H PRN 03/29/22 01/03/23 aerosol inhaler cyanocobalamin (vitamin B-12) 1,000 mcg PO DAILY 03/29/22 03/29/22 1,000 mcg capsule phentermine 37.5 mg tablet 37.5 mg PO DAILY 03/29/22 03/29/22 gabapentin 100 mg capsule mg PO 01/03/23 Allergies Allergy/AdvReac Type Severity Reaction Status Date / Time cefaclor [From [facility]] Allergy Hives Verified 01/03/23 12:33 [facility] Medical History Allergic conjunctivitis of both eyes ?H10.13 - Acute atopic conjunctivitis, bilateral (ICD-10) Chronic GERD ?K21.9 - Gastro-esophageal reflux disease without esophagitis (ICD-10) Depression with anxiety ?F41.8 - Other specified anxiety disorders (ICD-10) Frequent headaches ?R51.9 - Headache, unspecified (ICD-10) Gambling problem ?Z72.6 - Gambling and betting (ICD-10) Hyperopia of left eye ?H52.02 - Hypermetropia, left eye (ICD-10) Hyperopic astigmatism of right eye ?H52.201 - Unspecified astigmatism, right eye (ICD-10) Memory problem ?R41.3 - Other amnesia (ICD-10) Mood disorder ?F39 - Unspecified mood [affective] disorder (ICD-10) Nuclear senile cataract of both eyes ?H25.13 - Age-related nuclear cataract, bilateral (ICD-10) Osteoporosis ?M81.0 - Age-related osteoporosis without current pathological fracture (ICD- 10) Presbyopia ?H52.4 - Presbyopia (ICD-10) Restless leg ?G25.81 - Restless legs syndrome (ICD-10) Sleep difficulties ?G47.9 - Sleep disorder, unspecified (ICD-10) Surgical History No significant past surgical history Social History Smoking Status: Current every day smoker Do you use any of these nicotine containing products: None Second hand tobacco smoke exposure: No How often do you have a drink containing alcohol: 2-4 times a month AUDIT-C Alcohol total score: 2 Non-prescribed substance use: denies use Exam Narrative: Exam Narrative: Constitutional: Appears well-developed and well-nourished. Alert. Conversant. Non toxic. HENT: Head: Atraumatic. Nose: Nose normal. Mouth/Throat: Oral mucosa is clear and moist. no trismus. Pharynx normal. Tonsils symmetric. No tonsillar enlargement, erythema, or exudate. Eyes: Conjunctivae normal. EOM normal. Pupils equal, round, and reactive to light. No scleral icterus. Neck: Normal range of motion. Neck supple. No tracheal deviation present. Cardiovascular: Normal rate, regular rhythm. Symmetric radial artery pulses . No active bleeding. Normal distal capillary refill. Pulmonary/Chest: Effort normal. No stridor. No respiratory distress. No wheezes. No rales. No rhonchi . No tenderness. Abdominal: Soft. Bowel sounds normal. No distension. No mass. No tenderness. No rebound. No guarding. Musculoskeletal: RUE: Normal range of motion. No tenderness. No deformity LUE: Normal range of motion in her shoulder, elbow, wrist. Normal pronation/sup ination of the forearm. There is bruising and soft tissue swelling a factor of the the distal half of the volar forearm roughly 3 x 8 cm. There is also a separate area of bruising and swelling over the volar aspect of the wrist. There is mild tenderness over the swollen areas. This little bit of fluctuance under the skin suggesting of a hematoma. She has intact active flexion extension of the wrist. No evidence for any tendon injury . Intact radial, median, ulnar nerve motor and sensory function. No deformity RLE: Normal range of motion. No edema. No tenderness. No deformity LLE: Normal range of motion. No edema. No tenderness. No deformity Lymph: No cervical adenopathy. Neurological: Alert and oriented to person, place, and time. Normal strength. CN II-VII intact. No sensory deficit. GCS eye subscore is 4. GCS verbal subscore is 5. GCS motor subscore is 6. Normal coordination Skin: Skin is warm and dry. No rash noted. No pallor. Normal capillary refill. Psychiatric: Normal mood. Normal affect. Const: Vital Signs, click to edit/add: Vital Signs - 24 hr 01/03/23 12:29 Temperature 98.8 F Pulse Rate [Left P ulse Oximeter] 94 Respiratory Rate 16 Blood Pressure [Ri ght Upper Arm] 125/80 Pulse Oximetry 92 Oxygen Delivery Me thod Room Air Course Vital Signs Vital signs: Initial Vital Signs Temperature 98.8 F 01/03/23 12:29 Temperature Source Oral 01/03/23 12:29 Pulse Rate 94 01/03/23 12:29 Respiratory Rate 16 01/03/23 12:29 Blood Pressure 125/80 01/03/23 12:29 Blood Pressure Mean 95 01/03/23 12:29 Blood Pressure Position Sitting 01/03/23 12:29 Pulse Oximetry 92 01/03/23 12:29 Oxygen Delivery Method Room Air 01/03/23 12:29 Vital Signs Temperature 98.8 F 01/03/23 12:29 Pulse Rate 94 01/03/23 12:29 Respiratory Rate 16 01/03/23 12:29 Blood Pressure 125/80 01/03/23 12:29 Pulse Oximetry 92 01/03/23 12:29 Oxygen Delivery Method Room Air 01/03/23 12:29 Temperature 98.8 F 01/03/23 12:29 Pulse Rate 94 01/03/23 12:29 Respiratory Rate 16 01/03/23 12:29 Blood Pressure 125/80 01/03/23 12:29 Pulse Oximetry 92 01/03/23 12:29 Oxygen Delivery Method Room Air 01/03/23 12:29 Medical Decision Making MDM Narrative Medical decision making narrative: Pleasant 67-year-old female who presents today for isolated trauma to her left forearm and wrist after she fell off the 3rd rung of a ladder this afternoon. Injury occurred just prior to arrival. Patient denies any other injury sustained from her left wrist, which she thinks she probably scraped on the rung of the ladder she was falling. She has evidence for swelling and ecchymosis on the volar aspect of the distal half of her left forearm and volar left wrist. Fortunately x-rays are negative for fracture. Clinical exam would be most consistent with a superficial hematoma and shallow overlying abrasions. She is otherwise neurologically intact in that hand. No evidence for any elbow or shoulder injury. The remainder of her head to toe trauma exam is negative. No evidence for any C, T, L-spine injury. No evidence for hip or pelvic fracture. No evidence for torso injury. She did not hit her head. She is neurologically intact. At this point will treat supportively for contusion and possible wrist sprain. Discussed precautions for follow-up/return to the ER. Questions answered. Imaging Data X-ray left wrist: Attestation: I have reviewed the pertinent imaging results. My impression: No acute fracture Radiologist's impression: Impression: Mild degenerative changes of the 1st carpometacarpal and radiocarpal joint with mild soft tissue swelling. No evidence of displaced fracture. Discharge Plan Discharge Clinical Impression: Sprain and strain of wrist, Contusion of forearm, left Patient Disposition: Home, Self-Care Condition: Stable Instructions: Contusion in Adults (ED), Wrist Sprain (ED) Prescriptions: No Action pramipexole 1 mg tablet 1 mg PO DAILY alendronate 70 mg tablet 70 mg PO QWEEK sertraline 100 mg tablet 200 mg PO DAILY omeprazole 20 mg capsule,delayed release(DR/EC) 20 mg PO DAILY topiramate 100 mg tablet 100 mg PO DAILY bupropion HCl 300 mg tablet extended release 24 hr 300 mg PO DAILY bupropion HCl 150 mg tablet extended release 24 hr 150 mg PO DAILY topiramate 50 mg tablet 50 mg PO DAILY phentermine 37.5 mg tablet 37.5 mg PO DAILY Patient Comments: TAKE 1 TABLET BY MOUTH ONCE DAILY BEFORE A MEAL albuterol sulfate 90 mcg/actuation HFA aerosol inhaler 2 puff INHALATION Q4H PRN Patient Comments: INHALE 1 TO 2 PUFFS BY MOUTH EVERY 4 HOURS NEEDED FOR WHEEZING cyanocobalamin (vitamin B-12) 1,000 mcg capsule 1,000 mcg PO DAILY gabapentin 100 mg capsule PO Follow Up/Referrals: Nicola Palmer PA-C [Primary Care Provider] - Stand Alone Forms: [employer] Info Instructions
--- NOTE | 2023-01-03 12:45 | CRLHL7_ITS ---
For Patients: As a result of the Cures Act, medical imaging exams and procedure reports are released immediately into your electronic medical record. You may view this report before your referring provider. If you have questions, please contact your health care provider. Indication: Fall, volar wrist and forearm pain swelling Comparison: None available. Technique: AP, lateral, and oblique views left wrist were obtained. Findings: There is no displaced fracture or dislocation. There are moderate degenerative changes of the radiocarpal and 1st carpometacarpal joints with marginal osteophyte formation and subchondral sclerosis. There is mild carpal soft tissue swelling. Impression: Mild degenerative changes of the 1st carpometacarpal and radiocarpal joint with mild soft tissue swelling. No evidence of displaced fracture. Dictated by Moreno Oden MD @ 01/03/2023 1:23:27 PM (Electronically Signed)
== END 2023-01-03 14:00 | disposition home or self-care (01) ==
PROVIDERS: Emergency Provider Emergency Medicine; PCP Physician Assistant Medical
DX: S63.502A Unspecified sprain of left wrist, initial encounter (principal); S50.12XA Contusion of left forearm, initial encounter; W11.XXXA Fall on and from ladder, initial encounter
CPT/HCPCS: 73110; 99283

== ENCOUNTER 2024-07-28 00:11 | Emergency (ER) | payer MEDICARE, SELFPAY ==
--- OUTSIDE RECORDS SUMMARY | 2024-07-28 00:14 | XMS_ITS | Encounter Summary ---
Author Organization [facility] Address [address] [place] [id number] Care Team Providers Care Senior Safety Management Consultant Name Role Phone [facility] Primary Care Provider + Encounter Details Date Type Department Care Team (Late st Contact Info) Description 10/11/[address] [facility] Emergency Dept [address] [place] [address] Unknown, Provider Social History Tobacco Use Types Packs/Day Years Used Date Smoking Tobacco: Never Assessed Comments No Sex and Gender Information Value Date Recorded Sex Assigned at Not on file Legal Sex Female 4:10 AM CDT Gender Identity Not on file Sexual Orientation Not on file COVID-19 Exposure Response Date Recorded In the last month, have you been in contact with someone who was confirmed or suspected to have Coronavirus / COVID-19? 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
--- OUTSIDE RECORDS SUMMARY | 2024-07-28 00:14 | XMS_ITS | Clinical Summary ---
Author Organization [facility] Address [address] [place] [id number] Care Team Providers Care Jammer Operator Name Role Phone Clinic, [facility] Primary Care Provider + Allergies Active Allergy Reactions Criticality Noted Date Comments Cefaclor Hives 10/08/2020 Medications pramipexole (MIRAPEX) 1 MG tablet Take 1 mg by mouth 3 times daily Active omeprazole (PRILOSEC) [address] capsule Take 20 mg by mouth daily Active buPROPion (WELLBUTRIN XL) 150 MG 24 hr tablet Take 150 mg by mouth every morning Active sertraline (ZOLOFT) 100 MG tablet Take 100 mg by mouth daily Active topiramate (TOPAMAX) 100 MG tablet Take 100 mg by mouth 2 times daily Active Social History Tobacco Use Types Packs/Day Years Used Date Smoking Tobacco: Never Assessed Adolescent Education Answer Date Record ed Getting School Help Needed Not on file 01/31 Comments No Sex and Gender Information Value Date Recorded Sex Assigned at Not on file Legal Sex Female 4:10 AM CDT Gender Identity Not on file Sexual Orientation Not on file Last Filed Vital Signs Vital Sign Reading Time Taken Comments Blood Pressure 128/69 05/12/2021 3:37 AM [employer] SAL[employer]ERSON Pulse 87 05/12/2021 3:37 AM [employer] SAL[employer]ERSON Temperature 36.7 C (98.1 F) 05/12/2021 2:11 AM [employer] SAL[employer]ERSON Respiratory Rate 16 05/12/2021 3:37 AM [employer] SAL[employer]ERSON Oxygen Saturation 100% 05/12/2021 3:37 AM [employer]ERSON Inhaled Oxygen Concentration - - Weight 68.9 kg (152 lb) 10/08/2020 4:16 AM CDT Height - - Body Mass Index - - Plan of Treatment Not on file Insurance [facility] Care Teams Jammer Operator Relationship Specialty Start Date End Date [facility] [address] [place] [phone] PCP - General 10/08/20
--- OUTSIDE RECORDS SUMMARY | 2024-07-28 00:14 | XMS_ITS | Clinical Summary ---
Author Organization [facility] Address [address] [place] [address] Care Team Providers Care Yarder Name Role Phone Nicola Palmer Primary Care Provider [phone] Allergies Active Allergy Reactions Criticality Noted Date Comments Cefaclor *Unknown,Hives 08/27/2020 Hives Medications albuterol HFA (PRO-AIR; VENTOLIN; PROVENTIL) 90 mcg/actuation inhalerIndicatio ns:Chronic cough Inhale 1-2 Puffs by mouth every 4 hours if needed for Wheezing. 1 Each 3 4 Active alendronate (FOSAMAX) 70 mg tabletIndication s:Osteoporosis, unspecified osteoporosis type, unspecified pathological fracture presence TAKE 1 TABLET EVERY WEEK IN THE MORNING. TAKE ON AN EMPTY STOMACH WITH A FULL GLASS OF WATER, DO NOT LIE DOWN FOR 1 HOUR 13 Tablet 2 4 Active nicotine 21 mg/24 hr (NICODERM; HABITROL) 21 mg/24 hr patchIndications :Smoker Apply 1 Patch on dry, clean, hairless skin once daily. This is for weeks 1-6 42 Patch 4 Active nicotine 14 mg/24 hr (NICODERM; HABITROL) 14 mg/24 hr patchIndications :Smoker Apply 1 Patch on dry, clean, hairless skin once daily. This is weeks 7-8 14 Patch 4 Active nicotine 7 mg/24 hr (NICODERM; HABITROL) 7 mg/24 hr patchIndications :Smoker Apply 1 Patch on dry, clean, hairless skin once daily. This is for weeks 9-10 14 Patch 4 Active topiramate (TOPAMAX) 100 mg tabletIndication s:Nonintractable headache, unspecified chronicity pattern, unspecified headache type Take 1.5 Tablets (150 mg) by mouth at bedtime. 135 Tablet 5 Active sertraline (ZOLOFT) 100 mg tabletIndication s:Depression with anxiety TAKE 2 TABLETS EVERY MORNING. 180 Tablet 5 Active gabapentin (NEURONTIN) 400 mg capsuleIndicatio ns:Restless leg Take 1 cap (400 mg) in the am, 1 cap (400 mg) mid-day, & 1 cap (400 mg) along with 300 mg cap for total of 700 mg at bedtime 270 Capsule 5 Active gabapentin (NEURONTIN) 300 mg capsuleIndicatio ns:Restless leg Take along with 400 mg capsule for total of 700 mg at bedtime 90 Capsule 5 Active buPROPion (WELLBUTRIN XL) 300 mg Extended-Release tabletIndication s:Depression with anxiety Take 1 Tablet (300 mg) by mouth once daily. Take along with a 150 mg pill for a total of 450 mg daily 90 Tablet 5 Active buPROPion (WELLBUTRIN XL) 150 mg Extended-Release tabletIndication s:Depression with anxiety Take 1 Tablet (150 mg) by mouth once daily in the morning. Take along with a 300 mg tablet for a total of 450 mg daily 90 Tablet 5 Active omeprazole 20 mg Delayed-Release capsuleIndicatio ns:Chronic GERD TAKE 1 CAPSULE TWICE DAILY BEFORE MEALS 180 Capsule 1 5 Active omeprazole (PRILOSEC) 20 mg Delayed-Release capsuleIndicatio ns:Chronic GERD TAKE 1 CAPSULE TWICE DAILY BEFORE MEALS 180 Capsule 1 5 07/28/19 25 Discontinu ed(*Availa bility/For mulary change/Cos t of medication ) Active Problems Problem Noted Date Diagnosed Date Smoker 06/11/2022 Osteoporosis 06/10/2021 Mood disorder 05/14/2021 Nuclear senile cataract of both eyes 09/13/2020 Allergic conjunctivitis of both eyes 09/13/2020 Hyperopic astigmatism of right eye 09/13/2020 Hyperopia of left eye 09/13/2020 Presbyopia 09/13/2020 Frequent headaches 07/13/2020 Chronic GERD 07/13/2020 Memory problem 07/13/2020 Gambling problem 07/13/2020 Sleep difficulties 07/13/2020 Difficulty concentrating 07/13/2020 Depression with anxiety 07/13/2020 Restless leg 07/13/2020 Resolved Problems Problem Noted Date Diagnosed Date Resolved Date Restless leg 07/13/2020 01/05/2023 Encounters Date Type Department Care Team Description 07/25/[address] [address] Nicola Palmer PA Refill Request (Omeprazole) 07/16/[address] [address] Nicola Palmer PA Refill Request (Topiramate) 05/31/[address] [address] Nicola Palmer PA Refill Request (Gabapentin Cap, Gabapentin Tab, Omeprazole, Topiramate, Bupropion SR, Bupropion XL & Sertraline) 05/13/[address] [address] Nicola Palmer PA Refill Request (Sertraline, bupropion 150 & 300, topiramate/) 05/12/[address] [address] Nicola Palmer PA Refill Request (/omeprazole (PRILOSEC) 20 mg Delayed-Release capsule TAKE 1 CAPSULE TWICE DAILY BEFORE MEALS/gabapentin (NEURONTIN) 300 mg capsule Take along with 400 mg capsule for total of 700 mg at bedtime///) from Last 3 Months Immunizations Immunization Administration Dates Next Due Tdap 03/25/2021 Family History Medical History Relation Name Comments Alcoholism Brother 1 Westley Cancer Brother 1 Westley esophageal Diabetes Brother 1 Westley Diabetes Brother 2 Desmond Hypertension Brother 2 Desmond Diabetes Brother 3 Luis Alfredo Unknown Brother 4 Mic Alcoholism Father Lung cancer Father Alcoholism Maternal Grandfather Heart attack Maternal Grandmother Alcoholism Mother Cancer Mother larynx Emphysema Mother Cancer-breast Paternal Aunt Unknown Paternal Grandfather Unknown Paternal Grandmother Hyperlipidemia Son 1 Santy ? Deep vein thrombosis Son 2 Twin Mental illness Son 2 Twin Cancer-ovarian No Family History Relation Name Status Comments Brother 1 Westley Brother 2 Desmond Alive Brother 3 Luis Alfredo Alive Brother 4 Mic Alive Father Maternal Grandfather Maternal Grandmother Mother Paternal Aunt Paternal Grandfather Paternal Grandmother Son 1 Santy Alive Son 2 Twin Alive Social History Tobacco Use Types Packs/Day Years Used Date Smoking Tobacco: Every Day Cigarettes 0.8 4.2 Started: 05/11/2020 Passive Smoke Exposure: Past Smokeless Tobacco: Never Tobacco Cessation:Ready to Q uit: Not Asked; Counseling Given: Not Answered Comments:TOO MUCH STRESS Alcohol Use Standard Drinks/Week Comments Not Currently 0 (1 standard drink = 0.6 oz pur e alcohol) very rare PHQ-2 Answer Date Recorded PHQ-2 TOTAL SCORE 1 01/19/2024 Social Connections Answer Date Recorded Do you often feel lonely or isolated from those around you? 0 08/20/2023 Financial Resource Strain Answer Date R ecorded Difficulty of Paying Living Expenses 3 08/20/2023 Difficulty of Paying Living Expenses Not on file 08/20/2023 Food Insecurity Answer Date Recorded Do you worry your food will run out before you are able to buy more? 1 08/20/2023 Transportation Needs Answer Date Record ed Does lack of transportation keep you from medica l appointments? 1 08/20/2023 Does lack of transportation keep you from work, meetings or getting things that you need? 1 08/20/2023 Housing Stability Answer Date Recorded What is your housing situation today? 1 08/20/2023 Utilities Answer Date Recorded Do you have trouble paying f or utilities (for example, heat, electricity, water, phone)? 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 on file Not on file Not on file Obstetrics History Last Filed Vital Signs Vital Sign Reading Time Taken Comments Blood Pressure 120/72 08/20/2023 8:48 AM CDT Pulse 67 02/17/2024 9:50 AM CDT Temperature 37.4 C (99.4 F) 11/04/2021 10:54 AM CDT Respiratory Rate - - Oxygen Saturation 96% 02/17/2024 9:50 AM CDT Inhaled Oxygen Concentration - - Weight 73.2 kg (161 lb 6.4 oz) 02/17/2024 9:50 A M CDT Height 156.8 cm (5' 1.75) 08/20/2023 8:44 AM CD T Body Mass Index 29.76 08/20/2023 8:44 AM CDT Plan of Treatment Upcoming Encounters Date Type Department Care Team (Late st Contact Info) Description 08/22/2024 9:00 AM CDT Office Visit [facility] [address] [place], [place] [phone] [place] [address] [place] [address] Health Maintenance Due Date Last Done Comments Hepatitis C screening for ag e 18-79 01/19/1972 Pneumococcal series for age 50+ (1 of 2 - PCV) 1973 Zoster (shingles) series for age 50+ (1 of 2) 01/19/2004 COVID-19 vaccine series ( - season) 2024 Influenza Vaccine (#1) 2024 Medicare Wellness for age 65+ 06/11/2024, 06/11/2022, 05/14/2021 Mammogram for age 45-75 06/12/2024 06/12/2022, 06/04 BMI (ht and wt on same day) for age 18+ 08/19/2024 08/20/2023, 06/11/2023, 12/31/2022, Additional history exists Depression screening for age 12+ 2025 01/19/2024, 06/11/2023, 06/11/2022, Additional history exists Colonoscopy through age 75 02/14/2026 02/15/2016 Lipids for age 45-75 06/23/2028 06/23/2023, 06/11/2022, 08/29/2020 RSV vaccine for adults or (1 - 1-dose 75+ series) 2029 Tetanus booster 03/25/2031 03/25/2021 Tdap Completed 03/25/2021 DEXA/DXA scan for age 65+ Completed 06/18/2023, Procedures Procedure Name Priority Date/Time Associated Diagnosis Comments LIPID PANEL W REFLEX MEASURED LDL Routine 06/23/2023 12:32 PM REAL ESTATE RENTAL AGENT Screening for cholesterol level XR DXA BONE DENSITY 2 SITES AXIAL Routine 06/18/2023 1:20 PM REAL ESTATE RENTAL AGENT Osteoporosis, unspecified osteoporosis type, unspecified pathological fracture presence XR MAMMO BILAT SCREENING Routine 06/12/2022 11:13 AM REAL ESTATE RENTAL AGENT Encounter for screening mammogram for breast cancer SCAN-COLONOSCOPY 02/15/2016 12:0 0 AM CDT from Last 3 Months or Most Recently Relevant to Health Maintenance Results * LIPID PANEL W REFLEX MEASURED LDL (06/23/2023 12:32 PM REAL ESTATE RENTAL AGENT) CHOLESTEROL,TOTAL 172 100 - 199 mg/dL 06/24/2023 5:00 AM REAL ESTATE RENTAL AGENT [facility] Comment: Cholesterol, Total Reference Ranges Desirable <200 mg/dL Borderline 200-239 mg/dL High >=240 mg/dL TRIGLYCERIDES 85 <150 mg/dL 06/24/2023 5:00 AM REAL ESTATE RENTAL AGENT [facility] HDL CHOLESTEROL 58 >40 mg/dL 5:00 AM REAL ESTATE RENTAL AGENT [facility] NON-HDL CHOLESTEROL 114 <145 mg/dl 06/24/2023 5:00 AM [facility] CHOL/HDL RATIO 2.97 <4.50 06/24/2023 5:00 AM REAL ESTATE RENTAL AGENT [facility] LDL CHOLESTEROL 97 <=130 mg/dL 06/24/2023 5:00 AM REAL ESTATE RENTAL AGENT [facility] VLDL CHOLESTEROL 17 <=30 mg/dL 06/24/2023 5:00 AM REAL ESTATE RENTAL AGENT [facility] PROVIDER ORDERED STATUS RANDOM 06/24/2023 5:00 AM REAL ESTATE RENTAL AGENT [facility] Blood BLOOD SPECIMEN / Unknown Venipuncture / Unknown 06/23/2023 12:32 PM REAL ESTATE RENTAL AGENT 06/23/2023 12:33 PM REAL ESTATE RENTAL AGENT us Nicola JIN CHEMISTRY Final Resul t [facility] [address] [place] [address], [place] * XR DXA BONE DENSITY 2 SITES AXIAL (06/18/2023 1:20 PM REAL ESTATE RENTAL AGENT) Anatomical Region Laterality Modality Spine, HIPS, HIPL, HIPR Computed Radiography 06/18/2023 1:20 PM REAL ESTATE RENTAL AGENT Impressions 06/18/2023 2:04 PM REAL ESTATE RENTAL AGENT Low bone density (OSTEOPENIA). T score meets the WHO criteria for low bone density (osteopenia) at one or more measured sites. The risk of osteoporotic fracture increases approximately two-fold for each standard deviation decrease in T-score. Narrative 06/18/2023 2:04 PM REAL ESTATE RENTAL AGENT For Patients: As a result of the Cures Act, medical imaging exams and procedure reports are released immediately into your electronic medical record. You may view this report before your referring provider. If you have questions, please contact your health care provider. EXAM: XR DXA BONE DENSITY 2 SITES AXIAL LOCATION: [facility] DATE: 06/18/2023 INDICATION: D. osteoporosis (must be documented by previous exam) - m81.0 Osteoporosis, Unspecified Osteoporosis Type, Unspecified Pathological Fracture Presence. DEMOGRAPHICS: Age- 68 years. Gender- Female. Menopausal status- Postmenopausal. COMPARISON: No prior studies available on the current scanner. TECHNIQUE: Dual-energy x-ray absorptiometry (DXA) performed with routine technique. FINDINGS: DXA RESULTS -Lumbar Spine: L1-L4: BMD: 1.076 g/cm2. T-score: -0.9. Z-score: 0.6. -RIGHT Hip Total: BMD: 0.852 g/cm2. T-score: -1.2. Z-score: 0.0. -RIGHT Hip Femoral neck: BMD: 0.782 g/cm2. T-score: -1.8. Z-score: -0.3. -LEFT Hip Total: BMD: 0.808 g/cm2. T-score: -1.6. Z-score: -0.3. -LEFT Hip Femoral neck: BMD: 0.791 g/cm2. T-score: -1.8. Z-score: -0.3. WHO T-SCORE CRITERIA -Normal: T score at or above -1 SD -Osteopenia: T score between -1 and -2.5 SD -Osteoporosis: T score at or below -2.5 SD The World Health Organization (WHO) criteria is applicable to perimenopausal females, postmenopausal females, and men aged 50 years or older. FRACTURE RISK -FRAX Results: The 10 year probability of major osteoporotic fracture is 17.7%, and of hip fracture is 4.7%, based on right femoral neck BMD. RECOMMENDATIONS Consider treatment if major osteoporotic fracture score is greater than or equal to 20%, or if the hip fracture score is greater than or equal to 3%. Procedure Note Seng Alicea MD - 06/18/2023 For Patients: As a result of the Cures Act, medical imagingexams and procedure reports are released immediately into your electronicmedical record. You may view this report before your referring provider.If you have questions, please contact your health care provider. EXAM: XR DXA BONE DENSITY 2 SITES AXIAL LOCATION: [facility] DATE: 06/18/2023 INDICATION: D. osteoporosis (must be documented by previous exam) - m81.0Osteoporosis, Unspecified Osteoporosis Type, Unspecified PathologicalFracture Presence. DEMOGRAPHICS: Age- 68 years. Gender- Female. Menopausal status-Postmenopausal. COMPARISON: No prior studies available on the current scanner. TECHNIQUE: Dual-energy x-ray absorptiometry (DXA) performed with routinetechnique. FINDINGS: DXA RESULTS -Lumbar Spine: L1-L4: BMD: 1.076 g/cm2. T-score: -0.9. Z-score: 0.6. -RIGHT Hip Total: BMD: 0.852 g/cm2. T-score: -1.2. Z-score: 0.0. -RIGHT Hip Femoral neck: BMD: 0.782 g/cm2. T-score: -1.8. Z-score: -0.3. -LEFT Hip Total: BMD: 0.808 g/cm2. T-score: -1.6. Z-score: -0.3. -LEFT Hip Femoral neck: BMD: 0.791 g/cm2. T-score: -1.8. Z-score: -0.3. WHO T-SCORE CRITERIA -Normal: T score at or above -1 SD -Osteopenia: T score between -1 and -2.5 SD -Osteoporosis: T score at or below -2.5 SD The World Health Organization (WHO) criteria is applicable toperimenopausal females, postmenopausal females, and men aged 50 years orolder. FRACTURE RISK -FRAX Results: The 10 year probability of major osteoporotic fracture is17.7%, and of hip fracture is 4.7%, based on right femoral neck BMD. RECOMMENDATIONS Consider treatment if major osteoporotic fracture score is greater than orequal to 20%, or if the hip fracture score is greater than or equal to3%. IMPRESSION: Low bone density (OSTEOPENIA). T score meets the WHO criteria for low bonedensity (osteopenia) at one or more measured sites. The risk ofosteoporotic fracture increases approximately two-fold for each standarddeviation decrease in T-score. us Nicola JIN DEXA Final Resul t * XR MAMMO BILAT SCREENING (06/12/2022 11:13 AM REAL ESTATE RENTAL AGENT) Anatomical Region Laterality Modality BREASTS, Breast Left, Breast Right Bilateral Mammography Impressions 06/17/2022 3:47 PM REAL ESTATE RENTAL AGENT There is no radiographic evidence for malignancy. Recommend annual mammograms. MAMMOGRAM ASSESSMENT: ACR 1 Negative PATIENTS: You will also receive a letter with your examination results in an easy to read format. If you have questions about your results, please contact your referring provider. Narrative 06/17/2022 3:47 PM REAL ESTATE RENTAL AGENT For Patients: As a result of the 21st Century Cures Act, medical imaging exams and procedure reports are released immediately into your electronic medical record. You may view this report before your referring provider. If you have questions, please contact your health care provider. XR MAMMO BILAT SCREENING [[id number]] CLINICAL HISTORY: This is an asymptomatic 67 y.o. patient. INDICATION FOR EXAM: Mammogram Screening. TECHNIQUE: CC & MLO views were obtained. This study was evaluated with the assistance of Computer-Aided Detection. COMPARISON FILM: Yes 06/16/18 Outside Facility 06/04/15 Outside Facility FINDINGS: The breasts have scattered areas of fibroglandular density. There are no dominant masses, suspicious micro calcifications or areas of architectural distortion. us Nicola JIN MAMMO Final Resul t * SCAN-COLONOSCOPY (02/15/2016 12:00 AM CDT) us Scanner OTHER Final Result from Last 3 Months or Most Recently Relevant to Health Maintenance Insurance [employer] [place] BL[place] HB ONLY MEDICARE PART A HB ONLY MEDICARE PART B HB ONLY [employer] CHOICE PPO MR Care Teams Yarder Relationship Specialty [place] [address] [place] [address] PCP - General Physician Ore Feeder 08/06/20
--- OUTSIDE RECORDS SUMMARY | 2024-07-28 00:14 | XMS_ITS | Encounter Summary ---
Author Organization [facility] Address [address] [place] [id number] Care Team Providers Care Dining Room Host/Hostess Name Role Phone [facility] Primary Care Provider + Encounter Details Date Type Department Care Team (Late st Contact Info) Description 05/12/2021 Documentation Only INTERFACED REPORT Unknown, Provider Social History Tobacco Use Types [...] suspected to have Coronavirus / COVID-19? Yes 05/12/2021 1:53 AM BONDERIZER documented as of this encounter Plan of Treatment Not on file documented as of this encounter Visit Diagnoses Not on filedocumented in this encounter Additional Health Concerns Infection Onset Date Last Indicated Resolved Time Rule Out COVID-19 05/12/2021 05/12/2021 05/12/2021 3:40 AM BONDERIZER documented as of this encounter Care Teams Dining Room Host/Hostess Relationship Specialty Start Date End Date [facility] [address] [place] [address] PCP - General 10/08/20 documented as of this encounter
[2024-07-28 00:22] VITALS: BP 176/99; PULSE 72; RESP 20; TEMP 37.1; O2SAT 95; BMI 29.3
[2024-07-28 00:23] LABS: Appearance Urine Clear (Clear); Bilirubin Urine Negative (Negative); Blood Urine Trace-intact (Negative); Color Urine Yellow (Yellow); Glucose Urine Negative (Negative); Ketones Urine Negative (Negative); Leukocyte Esterase Urine Negative (Negative); Nitrite Urine Negative (Negative); Protein Urine Negative (Negative); Specific Gravity Urine >= 1.030 (1.000-1.030); Urobilinogen Urine 0.2 (0.2-1.0)
[2024-07-28 00:25] VITALS: O2SAT 95
[2024-07-28 00:31] LABS: Basophils Absolute Auto 0.04 K/uL (0.00-0.30); Basophils Percent Auto 0.5 % (0.0-3.0); Eosinophils Absolute Auto 0.36 K/uL (0.00-0.50); Eosinophils Percent Auto 4.5 % (0.0-7.0); Hematocrit 47.1 % (33.0-51.0); Immature Granulocytes Abs Auto 0.08 K/uL (0.00-0.30); Lymphocytes Absolute Auto 2.62 K/uL (0.90-2.90); Lymphocytes Percent Auto 32.9 % (20-44); Mean Corpuscular HGB Conc 32 gm/dL (32-36); Mean Corpuscular Hemoglobin 30 pg (26-34); Mean Corpuscular Volume 94 fL (80-100); Monocytes Percent Auto 9.5 % (0.0-11.0); Neutrophils Absolute Auto 4.11 K/uL (1.7-7.0); Neutrophils Percent Auto 51.6 % (42.0-72.0); Platelet Count* 219 K/uL (140-440); RDW Coefficient of Variation % 13.4 % (11.5-15.5); White Blood Count* 7.97 K/uL (4.50-11.00)
[2024-07-28 00:33] LABS: Squamous Epithelial Cell Urine Few (None-Few); WBC Urine 0-2 (0-5)
[2024-07-28 00:33] LABS: Slide Review Reflex No
--- NOTE | 2024-07-28 00:33 | ED.GENADULT ---
HPI - General Adult General Chief complaint: Abdominal Pain Stated complaint: gallbladder issue/stomach pain Time Seen by Provider: 07/28/24 00:33 History of Present Illness HPI narrative: c/o pain in the upper right abdomen pt. is nausea with movement but denies V/D cold/ respiratory symptoms. pt. has hx. of appy and 2 C sections 69-year-old woman presenting to the emergency department with concern of right upper abdominal pain. After eating a bowl of life cereal and milk about 2 hours prior to arrival began to have stabbing pains in the right upper abdomen. This has radiated around to the back now as well. Nauseated little bit when she does stand and also with escalation in pain at that time. Upon review of record, limited abdominal ultrasound from 2021 was without biliary sludge or stones. Otherwise she denies constipation with regular bowel movements. Not feeling particularly nauseated as noted certainly not vomiting. Was fine up until this episode. She has been taking omeprazole for years for heartburn and it sounds like that has been effective. Related Data Home Medications ?Medication ?Instructions ?Recorded ?Confirmed alendronate 70 mg tablet 70 mg PO QWEEK 11/05/21 07/28/24 bupropion HCl 150 mg 24 hr tablet, 150 mg PO DAILY 11/05/21 07/28/24 extended release bupropion HCl 300 mg 24 hr tablet, 300 mg PO DAILY 11/05/21 07/28/24 extended release omeprazole 20 mg capsule,delayed 20 mg PO DAILY 11/05/21 07/28/24 release sertraline 100 mg tablet 200 mg PO DAILY 11/05/21 07/28/24 topiramate 100 mg tablet 100 mg PO DAILY 11/05/21 07/28/24 topiramate 50 mg tablet 50 mg PO DAILY 11/05/21 07/28/24 gabapentin 100 mg capsule 300 mg PO TID 07/28/23 07/28/24 Previous Rx's ?Medication ?Instructions ?Recorded albuterol sulfate 90 mcg/actuation 2 puff inhalation Q4H PRN 07/08/23 aerosol inhaler shortness of breath or wheezing #1 ea Allergies Allergy/AdvReac Type Severity Reaction Status Date / Time cefaclor (From [facility]) Allergy Hives Verified 07/28/24 00:20 Review of Systems Status of ROS: Reports: 6 or more systems reviewed and unremarkable except as noted in History and below PFSH PFSH Medical History Restless leg ?G25.81 - Restless legs syndrome (ICD-10) Depression with anxiety ?F41.8 - Other specified anxiety disorders (ICD-10) Sleep difficulties ?G47.9 - Sleep disorder, unspecified (ICD-10) Gambling problem ?Z72.6 - Gambling and betting (ICD-10) Memory problem ?R41.3 - Other amnesia (ICD-10) Chronic GERD ?K21.9 - Gastro-esophageal reflux disease without esophagitis (ICD-10) Frequent headaches ?R51.9 - Headache, unspecified (ICD-10) Presbyopia ?H52.4 - Presbyopia (ICD-10) Hyperopia of left eye ?H52.02 - Hypermetropia, left eye (ICD-10) Hyperopic astigmatism of right eye ?H52.201 - Unspecified astigmatism, right eye (ICD-10) Allergic conjunctivitis of both eyes ?H10.13 - Acute atopic conjunctivitis, bilateral (ICD-10) Nuclear senile cataract of both eyes ?H25.13 - Age-related nuclear cataract, bilateral (ICD-10) Mood disorder ?F39 - Unspecified mood [affective] disorder (ICD-10) Osteoporosis ?M81.0 - Age-related osteoporosis without current pathological fracture (ICD-10) Surgical History No significant past surgical history Social History Smoking Status: Current every day smoker Do you use any of these nicotine containing products: None Second hand tobacco smoke exposure: No How often do you have a drink containing alcohol: 2-4 times a month AUDIT-C Alcohol total score: 2 Non-prescribed substance use: denies use Exam Narrative: Exam Narrative: Pleasant. NAD. Breathing easily. Hands at right upper abdomen. Cranial nerves 2-12 intact. Skin is warm and dry. No unusual rashes apparent. Lungs appear to be clear. Heart in regular rate and rhythm without murmur rub or gallop. Abdomen of present bowel sounds soft and moderately tender in the right upper abdomen. Negative Cardoso's. No flank pain. No masses appreciated. No peritoneal signs. Extremities are well perfused without edema. Const: Vital Signs, click to edit/add: Vital Signs - 24 hr 07/28/24 00:22 07/28/24 00:25 07/28/24 00:46 Temperature 98.8 F 98.8 F Pulse Rate [Pulse Oximeter] 72 Respiratory Rate 20 Blood Pressure [Ri ght Upper Arm] 176/99 H Pulse Oximetry 95 95 Oxygen Delivery Me thod Room Air 07/28/24 01:11 07/28/24 01:47 Temperature 98.8 F 98.8 F Pulse Rate [Pulse Oximeter] 75 Respiratory Rate 20 Blood Pressure [Ri ght Upper Arm] 156/75 H Pulse Oximetry 95 Oxygen Delivery Me thod Room Air Documenting provider has reviewed patient's vital signs: yes Course Vital Signs Vital signs: Initial Vital Signs Temperature 98.8 F 07/28/24 00:22 Temperature Source Temporal Artery Scan 07/28/24 00:22 Pulse Rate 72 07/28/24 00:22 Respiratory Rate 20 07/28/24 00:22 Blood Pressure 176/99 H 07/28/24 00:22 Blood Pressure Mean 124 H 07/28/24 00:22 Blood Pressure Position Semi-Fowlers 07/28/24 00:22 Pulse Oximetry 95 07/28/24 00:22 Oxygen Delivery Method Room Air 07/28/24 00:22 Vital Signs Temperature 98.8 F 07/28/24 00:22 Pulse Rate 72 07/28/24 00:22 Respiratory Rate 20 07/28/24 00:22 Blood Pressure 176/99 H 07/28/24 00:22 Pulse Oximetry 95 07/28/24 00:22 Oxygen Delivery Method Room Air 07/28/24 00:22 Temperature 98.8 F 07/28/24 01:47 Pulse Rate 75 07/28/24 01:11 Respiratory Rate 20 07/28/24 01:11 Blood Pressure 156/75 H 07/28/24 01:11 Pulse Oximetry 95 07/28/24 01:11 Oxygen Delivery Method Room Air 07/28/24 01:11 Medications Administered Medications: Discontinued Medications Generic Name Dose Route Start Last Admin Trade Name Freq PRN Reason Stop Dose Admin Ketorolac Tromethamine 30 mg 07/28/24 00:38 07/28/24 00:46 Ketorolac 30 Mg/Ml Inj IVP 07/28/24 00:39 30 mg ONCE ONE Administration Ondansetron HCl 4 mg 07/28/24 00:38 07/28/24 00:45 Ondansetron 2 Mg/Ml Inj IVP 07/28/24 00:39 4 mg ONCE ONE Administration Medical Decision Making MDM Narrative Medical decision making narrative: Area of pain appears to be potentially biliary. Has not had any preceding episodes however. I think less likely to be renal stones/ureteral stones did reproducibility of the pain though flank pain might indicate this. Urinary tract infection also possible though does not have symptoms of cystitis otherwise. I suppose also possible for abdominal mass and bleed. Bowel obstruction seems less likely for symptoms. Constipation possible. Diverticulitis unusual location but possible. No respiratory symptoms suggest a low-lying pneumonia. Could be hepatitis. Reviewing prior images -- CT chest from October of 2021 able to see only the upper parts of the kidneys are without no evidence for renal stones. Limited abdominal ultrasound at that time was without biliary disease Discussed options for pain management. She would appreciate something but does not need immediate affect. Ordered for ketorolac and also given Zofran Labs are reassuring with normal transaminases as well. White count is normal. Urinalysis concentrated with trace blood. Will scan abdomen looking for potential ureteral stone. This could also have a look at the gallbladder. CT abdomen pelvis without contrast independently reviewed by me seems to show larger jejunum. I am not able to locate hydroureter or ureteral stones Radiology over-read below. Study:?CT-Abdomen/Pelvis W/O-07/28/2024 1:24:14 AM Ordering Physician:Ivan Reed Final Report: Indication: Right-sided flank pain and hematuria Technique: Noncontrast CT through the abdomen and pelvis with multiplanar reformats. Comparison: None Findings: Lower chest: No acute abnormality appreciated. Hepatobiliary: No significant parenchymal abnormality is appreciated. Spleen: Unremarkable. Pancreas: No acute abnormality appreciated. Adrenal glands: No acute abnormality appreciated. Kidneys: No significant parenchymal abnormality appreciated. No visualized calculi. No hydronephrosis. Bowel: There is dilated distal duodenum and proximal jejunum with small bowel caliber measuring up to 3.7 centimeters. No focal transition point is identified, however, there are areas of internal contents fecalization and long segment jejunal wall thickening, not well evaluated on this noncontrast study. Diverticulosis. Vascular: Calcified atherosclerosis. Lymph nodes: No gross lymphadenopathy. Peritoneum: No free air. No free fluid. : No acute abnormality appreciated. Soft tissues: No acute abnormality appreciated. Bones: No acute fracture. No lytic or blastic lesion. Degenerative changes of the spine and pelvis. Impression: 1. Dilated distal duodenum and proximal jejunum measuring up to 3.7 centimeters with internal contents fecalization and long segment jejunal wall thickening, overall poorly evaluated due to the absence of IV contrast. No focal transition point is appreciated. Findings are suspicious for a partial or early high-grade obstruction which may be due to enteritis or other small bowel pathology. 2. No other acute abnormality appreciated. Please note that all CT scans at this facility use dose modulation, iterative reconstruction, and/or weight-based dosing when appropriate to reduce radiation dose to as low as reasonably achievable. Dictated by Lobo Vergara MD @ 07/28/2024 1:35:01 AM (Electronic Signature) On reassessment is markedly improved and feels well to go home. Did review these results with Yadira. At this point is opposed to rescanning here I think it would try to arrange for EGD. Can follow this up with primary or we can try to facilitate quicker procedure. See patient discharge plan for further discussion I am happy you are feeling better. Stay well-hydrated. Consider a fall intern diet over the next week. You might also add MiraLax equivalent into the liquid you drink a couple of times daily. We will try to schedule you for an EGD. If that becomes challenging, please follow-up with your primary care provider to arrange same. Take along a copy of this report and a copy of the images on this disc to your follow-up. Return for marked increase in recurrence of pain, repeated vomiting, associated fever. Lab Data Labs: Lab Results 07/28/24 07/28/24 Range/Units 00:15 00:25 WBC 7.97 (4.50-11.00) K/uL RBC 5.00 (4.00-5.20) m/uL Hgb 15.0 (12.0-16.0) gm/dL Hct 47.1 (33.0-51.0) % MCV 94 (80-100) fL MCH 30 (26-34) pg MCHC 32 (32-36) gm/dL RDW Coeff of Sammy 13.4 (11.5-15.5) % Plt Count 219 (140-440) K/uL Neut % (Auto) 51.6 (42.0-72.0) % Lymph % (Auto) 32.9 (20-44) % [place] % (Auto) 9.5 (0.0-11.0) % Eos % (Auto) 4.5 (0.0-7.0) % Baso % (Auto) 0.5 (0.0-3.0) % Neut # (Auto) 4.11 (1.7-7.0) K/uL Lymph # (Auto) 2.62 (0.90-2.90) K/uL [place] # (Auto) 0.80 (0.00-0.90) K/UL Eos # (Auto) 0.36 (0.00-0.50) K/uL Baso # (Auto) 0.04 (0.00-0.30) K/uL Abs Immat Gran (auto) 0.08 (0.00-0.30) K/uL Imm/Tot Granulo (auto) 1.0 % Sodium 143 (135-149) mmol/L Potassium 3.4 L (3.6-5.1) mmol/L Chloride 109 (96-114) mmol/L Carbon Dioxide 25 (20-32) mmol/L Anion Gap 9 (7-15) mEq/L BUN 18 (7-30) mg/dL Creatinine 0.8 (0.5-1.5) mg/dL Estimated Creat Clear 39.50 Estimated GFR 79 ml/min Glucose 112 (60-115) mg/dL Calcium 9.0 (8.4-10.6) mg/dL Total Bilirubin 0.4 (0.1-1.5) mg/dL Direct Bilirubin 0.4 (0.0-0.5) mg/dL AST 25 (12-35) U/L ALT 16 (4-35) U/L Alkaline Phosphatase 46 (40-150) U/L C-Reactive Protein < 0.5 L (0.5-1.0) mg/dL Total Protein 7.5 (6.0-8.3) g/dL Albumin 4.7 (3.3-5.0) g/dL Lipase 106 (23-300) U/L Urine Color Yellow (Yellow) Urine Appearance Clear (Clear) Urine pH 6.0 (5.0-8.5) Ur Specific [place] >= 1.030 (1.000-1.030) Urine Protein Negative (Negative) Urine Glucose (UA) Negative (Negative) Urine Ketones Negative (Negative) Urine Blood Trace-intact A (Negative) Urine Nitrite Negative (Negative) Urine Bilirubin Negative (Negative) Urine Urobilinogen 0.2 (0.2-1.0) Ur Leukocyte Esterase Negative (Negative) Urine RBC 10-25 A (0-2) Urine WBC 0-2 (0-5) Ur Squamous Epith Cells Few (None-Few) Urine Bacteria None (None) Discharge Plan Discharge Clinical Impression: Right upper quadrant abdominal pain Patient Disposition: Home, Self-Care Condition: Improved Additional Instructions: I am happy you are feeling better. Stay well-hydrated. Consider a fall intern diet over the next week. You might also add MiraLax equivalent into the liquid you drink a couple of times daily. We will try to schedule you for an EGD. If that becomes challenging, please follow-up with your primary care provider to arrange same. Take along a copy of this report and a copy of the images on this disc to your follow-up. Return for marked increase in recurrence of pain, repeated vomiting, associated fever. Prescriptions: No Action albuterol sulfate 90 mcg/actuation HFA aerosol inhaler 2 puff INHALATION Q4H PRN (Reason: shortness of breath or wheezing) Qty: 1 0RF alendronate 70 mg tablet 70 mg PO QWEEK sertraline 100 mg tablet 200 mg PO DAILY omeprazole 20 mg capsule,delayed release(DR/EC) 20 mg PO DAILY topiramate 100 mg tablet 100 mg PO DAILY bupropion HCl 300 mg tablet extended release 24 hr 300 mg PO DAILY bupropion HCl 150 mg tablet extended release 24 hr 150 mg PO DAILY topiramate 50 mg tablet 50 mg PO DAILY gabapentin 100 mg capsule 300 mg PO TID Follow Up/Referrals: Nicola Palmer PA-C [Primary Care Provider] - Stand Alone Forms: [employer]One Info Instructions
[2024-07-28 00:44] LABS: Albumin* 4.7 g/dL (3.3-5.0); Chloride* 109 mmol/L (96-114)
[2024-07-28 00:45] LABS: Potassium* 3.4 mmol/L (3.6-5.1); Sodium* 143 mmol/L (135-149)
[2024-07-28] MEDS: ONDANSETRON 2 MG/ML inj 4 MG IVP (00:45)
[2024-07-28 00:46] VITALS: TEMP 37.1
[2024-07-28] MEDS: KETOROLAC 30 MG/ML inj IVP (00:46)
[2024-07-28 00:47] LABS: Alanine Aminotransferase* 16 U/L (4-35); Alkaline Phosphatase* 46 U/L (40-150); Anion Gap 9 mEq/L (7-15); Aspartate Amino Transferase* 25 U/L (12-35); Bilirubin Direct* 0.4 mg/dL (0.0-0.5); Bilirubin Total* 0.4 mg/dL (0.1-1.5); Blood Urea Nitrogen* 18 mg/dL (7-30); Carbon Dioxide* 25 mmol/L (20-32); Creatinine* 0.8 mg/dL (0.5-1.5); Estimated Glomerular Filt Rate 79 ml/min; Glucose* 112 mg/dL (60-115); Lipase* 106 U/L (23-300); Total Protein* 7.5 g/dL (6.0-8.3)
--- OUTSIDE RECORDS SUMMARY | 2024-07-28 00:50 | XMS_ITS | Encounter Summary ---
Author Organization [facility] Address [address] [place] [address] Care Team Providers Care Ore Feeder Name Role Phone [facility] Primary Care Provider + Encounter Details [...] Coronavirus / COVID-19? Yes 05/12/2021 1:53 AM SCRAP CRANE OPERATOR documented as of this encounter Plan of Treatment Not on file documented as of this encounter Visit Diagnoses Not on filedocumented in this encounter Additional Health Concerns Infection Onset Date Last Indicated Resolved Time Rule Out COVID-19 05/12/2021 05/12/2021 05/12/2021 3:40 AM SCRAP CRANE OPERATOR documented as of this encounter Care Teams Ore Feeder Relationship Specialty Start Date End Date [facility] [address] [place] [address] PCP - General 10/08/20 documented as of this encounter
--- OUTSIDE RECORDS SUMMARY | 2024-07-28 00:50 | XMS_ITS | Encounter Summary ---
Author Organization [facility] Address [address] [place] [address] Care Team Providers Care Tire Shop Manager Name Role Phone [facility] Primary Care Provider + Encounter Details Date Type Department Care Team (Late st Contact Info) Description 10/11/2020 Documentation Only [facility] Emergency Dept [address] [place] [address] Unknown, Provider Social History Tobacco Use Types [...] Out COVID-19 05/12/2021 05/12/2021 05/12/2021 3:40 AM CHIEF PASSENGER SHIP STEWARD/STEWARDESS documented as of this encounter Care Teams Tire Shop Manager Relationship Specialty Start Date End Date [facility] [address] [place] [id number] PCP - General 10/08/20 documented as of this encounter
--- OUTSIDE RECORDS SUMMARY | 2024-07-28 00:50 | XMS_ITS | Clinical Summary ---
Author Organization [facility] Address [address] [place] [address] Care Team Providers Care [place]e Name Role Phone [facility] Primary Care Provider + Allergies Active Allergy [...] Comments Blood Pressure 128/69 05/12/2021 3:37 AM FORESTER AIDE Pulse 87 05/12/2021 3:37 AM FORESTER AIDE Temperature 36.7 C (98.1 F) 05/12/2021 2:11 AM FORESTER AIDE Respiratory Rate 16 05/12/2021 3:37 AM FORESTER AIDE Oxygen Saturation 100% 05/12/2021 3:37 AM FORESTER AIDE Inhaled Oxygen Concentration - - Weight 68.9 kg (152 lb) 10/08/2020 4:16 AM CDT Height - - Body Mass Index - - Plan of Treatment Not on file Insurance [employer] Care Teams [place] Relationship Specialty Start Date End Date [facility] [address] [place] [address] PCP - General 10/08/20
--- OUTSIDE RECORDS SUMMARY | 2024-07-28 00:50 | XMS_ITS | Clinical Summary ---
Author Organization [facility] Address [address] [place] [address] Care Team Providers Care Outside Parts Sales Name Role Phone Nicola Palmer Primary Care Provider [phone] Allergies Active Allergy Reactions Criticality Noted Date [...] Type Department Care Team Description 07/25/[address] [address] Nicola Palmer PA Refill Request (Omeprazole) 07/16/[address] [address] Nicola Palmer PA Refill Request (Topiramate) 05/31/[address] [address] Nicola Palmer PA Refill Request (Gabapentin Cap, Gabapentin Tab, Omeprazole, Topiramate, Bupropion SR, Bupropion XL & Sertraline) 05/13/[address] [address] Nicola Palmer PA Refill Request (Sertraline, bupropion 150 & 300, topiramate/) 05/12/[address] [address] Nicola Palmer PA Refill Request (/omeprazole (PRILOSEC) [...] on file Legal Sex Female 9:54 AM COLUMN PRECASTER Gender Identity Not on file Sexual Orientation [...] Description 08/22/2024 9:00 AM CDT Office Visit [facility] [address] [place], [place] [phone] [place] [address] [place] [address] Health Maintenance Due Date Last Done Comments [...] REFLEX MEASURED LDL Routine 06/23/2023 12:32 PM COLUMN PRECASTER Screening for cholesterol level XR DXA BONE DENSITY 2 SITES AXIAL Routine 06/18/2023 1:20 PM COLUMN PRECASTER Osteoporosis, unspecified osteoporosis type, unspecified pathological fracture presence XR MAMMO BILAT SCREENING Routine 06/12/2022 11:13 AM COLUMN PRECASTER Encounter for screening mammogram for breast cancer SCAN-COLONOSCOPY 02/15/2016 12:0 0 AM CDT from Last 3 Months or Most Recently Relevant to Health Maintenance Results * LIPID PANEL W REFLEX MEASURED LDL (06/23/2023 12:32 PM COLUMN PRECASTER) CHOLESTEROL,TOTAL 172 100 - 199 mg/dL 06/24/2023 5:00 AM COLUMN PRECASTER [facility] Comment: Cholesterol, Total Reference Ranges Desirable <200 mg/dL Borderline 200-239 mg/dL High >=240 mg/dL TRIGLYCERIDES 85 <150 mg/dL 06/24/2023 5:00 AM COLUMN PRECASTER [facility] HDL CHOLESTEROL 58 >40 mg/dL 5:00 AM COLUMN PRECASTER [facility] NON-HDL CHOLESTEROL 114 <145 mg/dl 06/24/2023 5:00 AM [facility] CHOL/HDL RATIO 2.97 <4.50 06/24/2023 5:00 AM COLUMN PRECASTER [facility] LDL CHOLESTEROL 97 <=130 mg/dL 06/24/2023 5:00 AM COLUMN PRECASTER [facility] VLDL CHOLESTEROL 17 <=30 mg/dL 06/24/2023 5:00 AM COLUMN PRECASTER [facility] PROVIDER ORDERED STATUS RANDOM 06/24/2023 5:00 AM COLUMN PRECASTER [facility] Blood BLOOD SPECIMEN / Unknown Venipuncture / Unknown 06/23/2023 12:32 PM COLUMN PRECASTER 06/23/2023 12:33 PM COLUMN PRECASTER us Nicola JIN CHEMISTRY Final Resul t [facility] [address] [place] [address], [place] * XR DXA BONE DENSITY 2 SITES AXIAL (06/18/2023 1:20 PM COLUMN PRECASTER) Anatomical Region Laterality Modality Spine, HIPS, HIPL, HIPR Computed Radiography 06/18/2023 1:20 PM COLUMN PRECASTER Impressions 06/18/2023 2:04 PM COLUMN PRECASTER Low bone density (OSTEOPENIA). T score meets the WHO criteria for low bone density (osteopenia) at one or more measured sites. The risk of osteoporotic fracture increases approximately two-fold for each standard deviation decrease in T-score. Narrative 06/18/2023 2:04 PM COLUMN PRECASTER For Patients: As a result of the Cures Act, medical imaging exams and procedure reports are released immediately into your electronic medical record. You may view this report before your referring provider. If you have questions, please contact your health care provider. EXAM: XR DXA BONE DENSITY 2 SITES AXIAL LOCATION: [facility] DATE: 06/18/2023 INDICATION: D. osteoporosis (must be [...] DXA BONE DENSITY 2 SITES AXIAL LOCATION: [facility] DATE: 06/18/2023 INDICATION: D. osteoporosis (must be [...] XR MAMMO BILAT SCREENING (06/12/2022 11:13 AM COLUMN PRECASTER) Anatomical Region Laterality Modality BREASTS, Breast Left, Breast Right Bilateral Mammography Impressions 06/17/2022 3:47 PM COLUMN PRECASTER There is no radiographic evidence for malignancy. Recommend annual mammograms. MAMMOGRAM ASSESSMENT: ACR 1 Negative PATIENTS: You will also receive a letter with your examination results in an easy to read format. If you have questions about your results, please contact your referring provider. Narrative 06/17/2022 3:47 PM COLUMN PRECASTER For Patients: As a result of the 21st Century Cures Act, medical imaging exams and procedure reports are released immediately into your electronic medical record. You may view this report before your referring provider. If you have questions, please contact your health care provider. XR MAMMO BILAT SCREENING [[id number]] CLINICAL HISTORY: This is an asymptomatic 67 [...] Relevant to Health Maintenance Insurance [employer] BLUE HB ONLY MEDICARE PART A HB ONLY MEDICARE PART B HB ONLY [employer] CHO[employer] PPO MR Care Teams Outside Parts Sales Relationship Specialty [place] [address] [place] [address] PCP - General Physician Electrical Engineering Manager 08/06/20
[2024-07-28 00:55] LABS: C Reactive Protein* < 0.5 mg/dL (0.5-1.0)
--- NOTE | 2024-07-28 01:05 | CRLHL7_ITS ---
For Patients: As a result of the Century Cures Act, medical imaging exams and procedure reports are released immediately into your electronic medical record. You may view this report before your referring provider. If you have questions, please contact your health care provider. Indication: Right-sided flank pain and hematuria Technique: Noncontrast CT through the abdomen and pelvis with multiplanar reformats. Comparison: None Findings: Lower chest: No acute abnormality appreciated. Hepatobiliary: No significant parenchymal abnormality is appreciated. Spleen: Unremarkable. Pancreas: No acute abnormality appreciated. Adrenal glands: No acute abnormality appreciated. Kidneys: No significant parenchymal abnormality appreciated. No visualized calculi. No hydronephrosis. Bowel: There is dilated distal duodenum and proximal jejunum with small bowel caliber measuring up to 3.7 centimeters. No focal transition point is identified, however, there are areas of internal contents fecalization and long segment jejunal wall thickening, not well evaluated on this noncontrast study. Diverticulosis. Vascular: Calcified atherosclerosis. Lymph nodes: No gross lymphadenopathy. Peritoneum: No free air. No free fluid. : No acute abnormality appreciated. Soft tissues: No acute abnormality appreciated. Bones: No acute fracture. No lytic or blastic lesion. Degenerative changes of the spine and pelvis. Impression: 1. Dilated distal duodenum and proximal jejunum measuring up to 3.7 centimeters with internal contents fecalization and long segment jejunal wall thickening, overall poorly evaluated due to the absence of IV contrast. No focal transition point is appreciated. Findings are suspicious for a partial or early high-grade obstruction which may be due to enteritis or other small bowel pathology. 2. No other acute abnormality appreciated. Please note that all CT scans at this facility use dose modulation, iterative reconstruction, and/or weight-based dosing when appropriate to reduce radiation dose to as low as reasonably achievable. Dictated by Lobo Vergara MD @ 07/28/2024 1:35:01 AM (Electronically Signed)
[2024-07-28 01:11] VITALS: BP 156/75; PULSE 75; RESP 20; TEMP 37.1; O2SAT 95
[2024-07-28 01:47] VITALS: TEMP 37.1
== END 2024-07-28 02:00 | disposition home or self-care (01) ==
PROVIDERS: Emergency Provider Family Medicine; PCP Physician Assistant Medical
DX: R10.11 Right upper quadrant pain (principal)
CPT/HCPCS: 36415; 74176; 80048; 80053; 80076; 81001; 83690; 85025; 86140; 94761; 96374; 96375; 99284; J1885; J2405

== ENCOUNTER 2024-08-11 07:51 | Outpatient (CLI) | payer MEDICARE, SELFPAY ==
--- NOTE | 2024-08-11 08:52 | P.ANES_ITS ---
Anesthesia Charges Start Date/Time Anesthesia Start Date: 08/11/24 Anesthesia Start Time: 08:35 Stop Date/Time Anesthesia Stop Date: 08/11/24 Anesthesia Stop Time: 08:50 Coding CPT Codes CPT Codes: ANES UPR GI NDSC PX NOS - 91885 ([id number]) P2 - PATIENT W/MILD SYST DISEASE, QZ - INDEPENDENT CONSULTANT SVC W/O LIMOUSINE AND HEARSE UPHOLSTERER BY
--- NOTE | 2024-08-11 08:52 | W.ANESCHARGE ---
Anesthesia Charges Start Date/Time Anesthesia Start Date: 08/11/24 Anesthesia Start Time: 08:35 Stop Date/Time Anesthesia Stop Date: 08/11/24 Anesthesia Stop Time: 08:50 Coding CPT Codes CPT Codes: ANES UPR GI NDSC PX NOS - 69488 ([id number]) P2 - PATIENT W/MILD SYST DISEASE, QZ - MEDICAL SCIENTIST SVC W/O SANDBLAST OPERATOR BY
== END 2024-08-11 07:52 | disposition home or self-care (01) ==
LOC: OP CLINIC 07:52
PROVIDERS: PCP Physician Assistant Medical; Visit Provider Internal Medicine
DX: R10.13 Epigastric pain (principal)
CPT/HCPCS: 00731; 43239; 88305; J2704; J3490